=== PATIENT | female | born 1980 | race Caucasian/White ===

== ENCOUNTER 2021-11-15 06:43 | Outpatient (REF) | payer BC, SELFPAY ==
[2021-11-15 11:21] LABS: MANUAL DIFF FLAG NO
[2021-11-15 11:54] LABS: Basophils Percent Auto 0.3 % (0-2); Eosinophils Absolute Auto 0.4 X10*3/uL (0.0-0.4); Eosinophils Percent Auto 3.4 % (0-4); Hematocrit 41.4 % (37.0-47.0); Hemoglobin 13.3 g/dl (12.0-16.0); Imm Gran Abs Auto 0.03 X10*3/uL (0.00-0.03); Imm Gran Pct Auto 0.3 % (0.0-0.4); Lymphocytes Absolute Auto 3.3 X10*3/uL (1.2-4.9); Lymphocytes Percent Auto 31.8 % (20-40); Mean Corpuscular HGB Conc 32.1 g/dl (31.0-35.0); Mean Corpuscular Hemoglobin 29.1 pg (27.0-33.0); Mean Corpuscular Volume 90.6 fL (80.0-98.0); Mean Platelet Volume 10.7 fL (9.4-12.3); Monocytes Absolute Auto 0.6 X10*3/uL (0.1-1.2); Monocytes Percent Auto 5.5 % (2-11); Neutrophils Absolute Auto 6.1 x10*3/uL (2.0-8.3); Neutrophils Percent Auto 58.7 % (45-73); Platelet Count 263 X10*3/uL (160-400); Red Blood Count 4.57 X10*6/uL (4.20-5.50); Red Cell Distribution Width 13.6 % (11.0-16.0); White Blood Count 10.4 X10*3/uL (4.8-10.8)
[2021-11-15 12:00] LABS: Alanine Aminotransferase 23 U/L (0-31); Alkaline Phosphatase 60 U/L (39-117); Anion Gap 11 (12-20); Aspartate Amino Transferase 22 U/L (5-31); Bilirubin Total 0.6 mg/dL (0.0-1.0); Blood Urea Nitrogen 11 mg/dL (9-16); Calcium 9.5 mg/dL (8.4-10.2); Carbon Dioxide 26 mmol/L (22-29); Chloride 103 mmol/L (96-108); Cholesterol 200 mg/dL; Estimated Glomerular Filt Rate > 60; Glucose Fasting 87 mg/dL (60-99); HDL Cholesterol 54 mg/dL; LDL Cholesterol Calculated 130 mg/dl; Sodium 136 mmol/L (135-145); Total Protein 6.8 g/dL (6.5-8.0); Triglycerides 84 mg/dL
[2021-11-15 12:24] LABS: Thyroid Stimulating Hormone 2.15 uIU/mL (0.32-4.0); Vitamin D 25-OH Total 25.1 ng/mL (>30)
== END 2021-11-15 06:44 | disposition home or self-care (01) ==
LOC: HO.HMGCLDS 06:43
PROVIDERS: Visit Provider Internal Medicine
DX: Z00.00 Encounter for general adult medical examination without abnormal findings (principal); K21.9 Gastro-esophageal reflux disease without esophagitis; E78.00 Pure hypercholesterolemia, unspecified
CPT/HCPCS: 36415; 80053; 80061; 82306; 84443; 85025

== ENCOUNTER 2022-03-14 09:48 | Emergency (ER) | payer BC, SELFPAY ==
--- NOTE | ~2022-03-14 | US_ITS ---
EXAMINATION: US PELVIS CLINICAL INFORMATION: Left lower quadrant pain. COMPARISON: Previous CT of the abdomen and pelvis from earlier the same day. TECHNIQUE: Ultrasound of the pelvis is performed using both transabdominal and transvaginal transducers along with Doppler. Transvaginal imaging is performed due to inadequate visualization transabdominally. FINDINGS: The uterus is retroverted and measures 9.3 x 5 x 5.6 cm in dimension. No focal uterine lesion is seen. The endometrium appears focally thickened in the fundus of the uterus measuring 2.4 cm. The right ovary measures 3 x 2.4 x 2.3 cm. Adjacent to the right ovary is a 2.3 x 1.3 x 1.2 cm heterogeneous predominantly solid hyperechoic area. This demonstrates arterial and venous flow. There is surrounding small to moderate amount of fluid. Left ovary is normal-appearing and measures 4.4 x 2.3 x 1.9 cm. There is a 2.5 x 1.3 x 2.3 cm simple cyst in the right vagina probably representing a Claudia's duct cyst. US/US pelvic and transvaginal IMPRESSION: Focal thickening of the endometrium in the uterine fundus measuring up to 2.4 cm. 2.3 x 1.3 x 1.2 cm heterogeneous predominantly solid appearing right adnexal lesion and small to moderate amount of fluid in the pelvis. Considerations would include a hematoma, ruptured ovarian cyst and mass. Ectopic should be excluded. 2.5 x 1.3 x 2.3 cm simple right vaginal cyst probably representing a Claudia's duct cyst.
--- NOTE | ~2022-03-14 | CT_ITS ---
EXAMINATION: CT ABDOMEN AND PELVIS WITHOUT CONTRAST CLINICAL INFORMATION: Left lower quadrant abdominal pain for several weeks COMPARISON: None TECHNIQUE: Multidetector volumetric imaging was performed from the superior aspect of the liver through the pubic symphysis. Sagittal and coronal reformatted images were obtained on the technologist's workstation. This CT examination was performed using dose optimization techniques as appropriate, variously including the following: *Automated exposure control *Adjustment of mA and/or kV according to patient size (this includes techniques or standardized protocols for targeted exams where dose is matched to indication/reason for exam; i.e. extremities or head) *Use of iterative reconstruction technique DLP: 480 mGy-cm FINDINGS: LUNG BASES: The visualized lung bases are unremarkable. LIVER, GALLBLADDER, AND BILIARY TREE: The liver is normal in size, shape, and attenuation. No focal hepatic lesion or biliary ductal dilatation is present. The gallbladder is unremarkable with no evidence of radiopaque gallstones, gallbladder wall thickening, or obvious pericholecystic inflammatory changes. PANCREAS: Unremarkable. SPLEEN: Unremarkable. ADRENAL GLANDS: Unremarkable. KIDNEYS AND URETERS: The kidneys are normal in size, shape, and attenuation. No hydronephrosis, hydroureter, or calculi seen. No perinephric stranding. BLADDER: The bladder is markedly distended. No intrinsic calcification. GASTROINTESTINAL TRACT: No bowel obstruction or right or left lower quadrant inflammation. Appendix not clearly visualized. No evidence for diverticulitis. ABDOMINAL WALL: No significant hernia is appreciated. LYMPH NODES: Normal. VASCULAR: Unremarkable. PELVIC VISCERA: There is a small amount of fluid in the cul-de-sac which is likely physiologic. If clinically indicated, pelvic ultrasound can be done. OSSEOUS STRUCTURES: Unremarkable. CT/CT abdomen pelvis wo con IMPRESSION: Markedly distended bladder. Small amount of fluid in the cul-de-sac may be physiologic. Fleischner guidelines were followed.
--- NOTE | ~2022-03-14 | US_ITS ---
EXAMINATION: US PELVIS CLINICAL INFORMATION: Left lower quadrant pain. COMPARISON: Previous CT of the abdomen and pelvis from earlier the same day. TECHNIQUE: Ultrasound of the pelvis is performed using both transabdominal and transvaginal transducers along with Doppler. Transvaginal imaging is performed due to inadequate visualization transabdominally. FINDINGS: The uterus is retroverted and measures 9.3 x 5 x 5.6 cm in dimension. No focal uterine lesion is seen. The endometrium appears focally thickened in the fundus of the uterus measuring 2.4 cm. The right ovary measures 3 x 2.4 x 2.3 cm. Adjacent to the right ovary is a 2.3 x 1.3 x 1.2 cm heterogeneous predominantly solid hyperechoic area. This demonstrates arterial and venous flow. There is surrounding small to moderate amount of fluid. Left ovary is normal-appearing and measures 4.4 x 2.3 x 1.9 cm. There is a 2.5 x 1.3 x 2.3 cm simple cyst in the right vagina probably representing a Claudia's duct cyst. US/US pelvic ovarian doppler IMPRESSION: Focal thickening of the endometrium in the uterine fundus measuring up to 2.4 cm. 2.3 x 1.3 x 1.2 cm heterogeneous predominantly solid appearing right adnexal lesion and small to moderate amount of fluid in the pelvis. Considerations would include a hematoma, ruptured ovarian cyst and mass. Ectopic should be excluded. 2.5 x 1.3 x 2.3 cm simple right vaginal cyst probably representing a Claudia's duct cyst.
[2022-03-14 09:57] VITALS: BP 152/92; PULSE 96; RESP 16; TEMP 36.8; O2SAT 100; BMI 22.6
[2022-03-14 10:18] VITALS: BP 108/68; PULSE 78; RESP 16; TEMP 36.9; O2SAT 99
--- NOTE | 2022-03-14 10:37 | ED_ITS ---
HPI - Abdominal Pain General Chief Complaint: Abdominal Pain Stated Complaint: abd pain Lower L Time Seen by Provider: 03/14/22 10:19 Source: patient Mode of arrival: ambulatory Limitations: no limitations History of Present Illness HPI narrative: 41-year-old female with a past medical history of epidermal inclusion cyst otherwise denies any other medical or surgical history presenting to the ED with complaints of 3 weeks of left lower quadrant abdominal pain that has been intermittent up until 1 week and half ago where it became constant she reports it as a dull/burning sensation pain. She reports she has never had this pain in the past. She reports that she had a normal bowel movement this morning. She denies any fevers, chills, dizziness, headaches, neck pain/stiffness, trouble swallowing or breathing, chest pain or shortness of breath, dyspnea on exertion, orthopnea, palpitations, paresthesias, flank pain, nausea/vomiting, black or bloody stools, back pain, dysuria, hematuria, abnormal vaginal discharge, recent falls or trauma, rashes, recent travel or sick contacts or any other symptoms complaints or concerns at this time. MD elicited complaint: abdominal pain Pertinent past history: none Onset (ago): week(s) (Three weeks worse in the past 1-1/2 week) Pain Consistency: constant Location: LLQ Severity: mild Quality: dull and burning Radiation: none Migration to: no migration Exacerbating factors: movement (and palpation ) Relieving factors: nothing Associated symptoms: denies other symptoms Related Data Hx Last Menstrual Period: 3 weeks ago due in 5 days Patient : No Previous Rx's Medication Instructions Recorded fluconazole 150 mg tablet 150 mg PO Q3D fungal infection 2 03/14/22 (Diflucan) doses #2 tabs Allergies Allergy/AdvReac Type Severity Reaction Status Date / Time No Known Allergies Allergy Unverified 01/11/22 15:58 [No Known Allergies*] Review of Systems Review of Systems Constitutional : No Fever, No Chills, No Night Sweats, No Fatigue, No Malaise Cardiovascular : No Chest Pain, No SOB Respiratory : No Cough, No Sputum, No Wheezing, No Dyspnea Gastrointestinal : No Nausea, No Vomiting, No Diarrhea, + abdominal Pain, No Hematochezia, No Melena Genitourinary : No irregular bleeding, No Dysuria, No Urinary Frequency, No Hematuria,No Urinary Incontinence, No Urgency, No Flank Pain Musculoskeletal : No joint pain, No Myalgias, No Joint Swelling Skin : No Skin Lesions, No rash Neuro : No Weakness, No Numbness, No Paresthesias, No Loss of Consciousness, No Dizziness, No Headache Heme/Lymph: No Lymphadenopathy Endocrine : No Temperature Intolerance Yes all other systems are reviewed and are negative [facility] Past Medical History Attestation statement: The following information was validated with the patient. Source: old records reviewed and nursing notes reviewed Surgical History History of removal of cyst History of wisdom tooth extraction Hx Last Menstrual Period: 3 weeks ago due in 5 days Family History Family History Mother Endometriosis Diverticulitis Social History Social History Advance Directives: No Advance Directives Information Provided: No Patient : No Physical Exam ED Vital Signs: Vital Signs - 24 hr 03/14/22 09:57 03/14/22 10:18 Temperature 98.3 F 98.4 F Pulse Rate 96 78 Respiratory Rate 16 16 Blood Pressure 152/92 H 108/68 Pulse Oximetry 100 99 Oxygen Delivery Method Room Air Room Air BMI result Body Mass Index 22.6 Vital signs have been reviewed and all within normal limits Appearance: Alert. Oriented X3. No acute distress. Head: Normal external exam. Normocephalic. Eyes: PERRLA. EOMI. Conjunctiva and sclera normal. Eyelids normal. ENT: Pharynx normal. Uvula midline. Moist mucous membranes. No trismus noted. No drooling noted. No muffled voice noted. Neck: Normal inspection. Neck supple. FROM. No adenopathy. No meningeal signs. CVS: Normal heart rate and rhythm. Heart sound normal. No murmurs noted. Pulses normal throughout. Respiratory: No respiratory distress. Painless inspiration. Breath sounds normal. No wheezes/rales/rhonchi noted. Chest nontender. No accessory muscle usage noted or decreased air movement noted. Abdomen: Soft and mild tenderness palpation to left lower quadrant. Nondistended. No guarding. No rigidity. Bowel sounds normal in all 4 quadrants. No distention noted. No organomegaly noted. No visible injury noted. No rebound tenderness. Negative Rovsing sign. Negative obturator's sign. Negative psoas sign. Negative Cruz sign. Back: No CVA tenderness. Full range of motion noted. Skin: Skin warm and dry. Normal skin color. Normal skin turgor. No rashes/lesions/lacerations noted. Extremities: Extremities exhibit normal range of motion. Extremities nontender. Neuro: Oriented X 3. No motor deficit. No sensory deficit. Reflexes normal. Normal steady gait. CN's II-XII intact bilaterally? Course Course Course Narrative: 10:20am - 41-year-old female with a past medical history of epidermal inclusion cyst otherwise denies any other medical or surgical history presenting to the ED with complaints of 3 weeks of left lower quadrant abdominal pain that has been intermittent up until 1 week and half ago where it became constant she reports it as a dull/burning sensation pain. Plan: Will obtain labs, UA, CT scan abdomen pelvis with IV contrast re-evalua te. Reevaluation(s) Reevaluation #1: - labs return and all labs within normal limits. Serum quant negative for . - CT scan abdomen pelvis revealed markedly distended bladder and small amount of fluid in the [place] may be physioogic. Otherwise no other acute processes noted. - will obtain an ovarian/Doppler ultrasound to evaluate for any other acute processes and re-evaluate. Time: 12:38 Reevaluation #2: IMPRESSION: Focal thickening of the endometrium in the uterine fundus measuring up to 2.4 cm. ? 2.3 x 1.3 x 1.2 cm heterogeneous predominantly solid appearing right adnexal lesion and small to moderate amount of fluid in the pelvis. Considerations would include a hematoma, ruptured ovarian cyst and mass. Ectopic should be excluded. ? 2.5 x 1.3 x 2.3 cm simple right vaginal cyst probably representing a Claudia's duct cyst. - Ultrasound revealed the above. Therefore I discussed this with Dr. Martinez and patient does not have any right lower quadrant abdominal pain. I performed a speculum exam and her cervical os is completely close although she does have cottage cheese like nonodorous white-colored discharge therefore will treat for Nichelle vaginitis. Otherwise she will be referred to OBGYN as an outpatient for further evaluation treatment. Instructions return if any new or worsening symptoms. Patient understands agrees with this plan. Time: 15:48 [facility] - Abdominal Pain Medical Records Attestation: I reviewed the patient's medical records. Lab Data Attestation: I reviewed the patient's lab results. Result diagrams: 03/14/22 10:34 03/14/22 10:34 Labs: Lab Results 03/14/22 03/14/22 03/14/22 Range/Units 10:34 10:34 10:34 WBC 9.8 (4.8-10.8) X10*3/uL RBC 4.67 (4.20-5.50) X10*6/uL Hgb 13.8 (12.0-16.0) g/dl Hct 41.5 (37.0-47.0) % MCV 88.9 (80.0-98.0) fL MCH 29.6 (27.0-33.0) pg MCHC 33.3 (31.0-35.0) g/dl RDW 13.4 (11.0-16.0) % Plt Count 229 (160-400) X10*3/uL MPV 10.1 (9.4-12.3) fL Immature Gran % (Auto) 0.3 (0.0-0.4) % Neut % (Auto) 65.8 (45-73) % Lymph % (Auto) 27.2 (20-40) % [place] % (Auto) 5.5 (2-11) % Eos % (Auto) 0.9 (0-4) % Baso % (Auto) 0.3 (0-2) % Lymph # (Auto) 2.7 (1.2-4.9) X10*3/uL [place] # (Auto) 0.5 (0.1-1.2) X10*3/uL Eos # (Auto) 0.1 (0.0-0.4) X10*3/uL Baso # (Auto) 0.0 (0.0-0.2) X10*3/uL Abs Immat Gran (auto) 0.03 (0.00-0.03) X10*3/uL Absolute Neuts (auto) 6.4 (2.0-8.3) x10*3/uL Absolute Nucleated RBC 0.000 (0.0-0.012) X10*3/uL Nucleated RBC % (auto) 0.0 (0.0-0.2) /100WBC PT 11.9 (10.0-13.1) SEC INR 1.0 (0.9-1.1) Sodium 139 (135-145) mmol/L Potassium 4.1 (3.3-5.1) mmol/L Chloride 105 (96-108) mmol/L Carbon Dioxide 25 (22-29) mmol/L Anion Gap 13 (12-20) BUN 11 (9-16) mg/dL Creatinine 0.71 (0.5-1.4) mg/dL Estim Creat Clear Calc 99.5 Estimated GFR > 60 Random Glucose 86 (60-115) mg/dL Calcium 9.0 (8.4-10.2) mg/dL Magnesium 2.1 (1.6-2.6) mg/dL Total Bilirubin 0.8 (0.0-1.0) mg/dL AST 20 (5-31) U/L ALT 21 (0-31) U/L Alkaline Phosphatase 57 (39-117) U/L Total Protein 7.0 (6.5-8.0) g/dL Albumin 4.1 (3.5-5.0) g/dL Lipase 7 L (8-78) U/L Beta HCG, Quant < 2 mIU/mL Urine Color Urine Appearance Urine pH (5.0-8.0) Ur Specific [place] (1.005-1.025) Urine Protein (Neg-Trace) mg/dL Urine Glucose (UA) (Negative) mg/dL Urine Ketones (Negative) mg/dL Urine Blood (Negative) Urine Nitrite (Negative) Ur Leukocyte Esterase (Negative) 03/14/22 Range/Units 14:06 WBC (4.8-10.8) X10*3/uL RBC (4.20-5.50) X10*6/uL Hgb (12.0-16.0) g/dl Hct (37.0-47.0) % MCV (80.0-98.0) fL MCH (27.0-33.0) pg MCHC (31.0-35.0) g/dl RDW (11.0-16.0) % Plt Count (160-400) X10*3/uL MPV (9.4-12.3) fL Immature Gran % (Auto) (0.0-0.4) % Neut % (Auto) (45-73) % Lymph % (Auto) (20-40) % [place] % (Auto) (2-11) % Eos % (Auto) (0-4) % Baso % (Auto) (0-2) % Lymph # (Auto) (1.2-4.9) X10*3/uL [place] # (Auto) (0.1-1.2) X10*3/uL Eos # (Auto) (0.0-0.4) X10*3/uL Baso # (Auto) (0.0-0.2) X10*3/uL Abs Immat Gran (auto) (0.00-0.03) X10*3/uL Absolute Neuts (auto) (2.0-8.3) x10*3/uL Absolute Nucleated RBC (0.0-0.012) X10*3/uL Nucleated RBC % (auto) (0.0-0.2) /100WBC PT (10.0-13.1) SEC INR (0.9-1.1) Sodium (135-145) mmol/L Potassium (3.3-5.1) mmol/L Chloride (96-108) mmol/L Carbon Dioxide (22-29) mmol/L Anion Gap (12-20) BUN (9-16) mg/dL Creatinine (0.5-1.4) mg/dL Estim Creat Clear Calc Estimated GFR Random Glucose (60-115) mg/dL Calcium (8.4-10.2) mg/dL Magnesium (1.6-2.6) mg/dL Total Bilirubin (0.0-1.0) mg/dL AST (5-31) U/L ALT (0-31) U/L Alkaline Phosphatase (39-117) U/L Total Protein (6.5-8.0) g/dL Albumin (3.5-5.0) g/dL Lipase (8-78) U/L Beta HCG, Quant mIU/mL Urine Color Yellow Urine Appearance Clear Urine pH 7.0 (5.0-8.0) Ur Specific [place] <= 1.005 (1.005-1.025) Urine Protein Negative (Neg-Trace) mg/dL Urine Glucose (UA) Negative (Negative) mg/dL Urine Ketones Negative (Negative) mg/dL Urine Blood Negative (Negative) Urine Nitrite Negative (Negative) Ur Leukocyte Esterase Negative (Negative) Imaging Data CT scan abdomen pelvis without IV contrast: Attestation: I personally reviewed and interpreted this imaging study as follows: Radiologist's impression: FINDINGS: LUNG BASES: The visualized lung bases are unremarkable.? LIVER, GALLBLADDER, AND BILIARY TREE: The liver is normal in size, shape, and attenuation. No focal hepatic lesion or biliary ductal dilatation is present. The gallbladder is unremarkable with no evidence of radiopaque gallstones, gallbladder wall thickening, or obvious pericholecystic inflammatory changes.? PANCREAS: Unremarkable.? SPLEEN: Unremarkable.? ADRENAL GLANDS: Unremarkable.? KIDNEYS AND URETERS: The kidneys are normal in size, shape, and attenuation. No hydronephrosis, hydroureter, or calculi seen. No perinephric stranding. ? BLADDER: The bladder is markedly distended. No intrinsic calcification. ? GASTROINTESTINAL TRACT: No bowel obstruction or right or left lower quadrant inflammation. Appendix not clearly visualized. No evidence for diverticulitis.? ABDOMINAL WALL: No significant hernia is appreciated.? LYMPH NODES: Normal. VASCULAR: Unremarkable. PELVIC VISCERA: There is a small amount of fluid in the cul-de-sac which is likely physiologic. If clinically indicated, pelvic ultrasound can be done.? OSSEOUS STRUCTURES: Unremarkable.? CT/CT abdomen pelvis wo con IMPRESSION: Markedly distended bladder. Small amount of fluid in the cul-de-sac may be physiologic.? ? Fleischner guidelines were followed. Ovarian/pelvic/transvaginal ultrasound/Doppler ultrasound: Attestation: I personally reviewed and interpreted this imaging study as follows: Radiologist's impression: FINDINGS: The uterus is retroverted and measures 9.3 x 5 x 5.6 cm in dimension. No focal uterine lesion is seen. The endometrium appears focally thickened in the fundus of the uterus measuring 2.4 cm. The right ovary measures 3 x 2.4 x 2.3 cm. Adjacent to the right ovary is a 2.3 x 1.3 x 1.2 cm heterogeneous predominantly solid hyperechoic area. This demonstrates arterial and venous flow. There is surrounding small to moderate amount of fluid. Left ovary is normal-appearing and measures 4.4 x 2.3 x 1.9 cm. There is a 2.5 x 1.3 x 2.3 cm simple cyst in the right vagina probably representing a Claudia's duct cyst. US/US pelvic and transvaginal IMPRESSION: Focal thickening of the endometrium in the uterine fundus measuring up to 2.4 cm. ? 2.3 x 1.3 x 1.2 cm heterogeneous predominantly solid appearing right adnexal lesion and small to moderate amount of fluid in the pelvis. Considerations would include a hematoma, ruptured ovarian cyst and mass. Ectopic should be excluded. ? 2.5 x 1.3 x 2.3 cm simple right vaginal cyst probably representing a Claudia's duct cyst. Discharge Plan Discharge Clinical Impression: Abnormal pelvic ultrasound, Endometrial thickening on ultrasound, Cyst of vagina, Nichelle vaginitis Patient Disposition: Home, Self-Care Instructions: Yeast Infection (ED) Additional Instructions: You have pending lab results if any are positive you will be contacted within 1 week. You can also see results on the patient portal using your email a few signed up with registration. Please follow-up with OBGYN within the next 1-2 weeks for your abnormal pelvic ultrasound. Along with following up with her primary care provider. Return if any new or worsening symptoms. Prescriptions: New fluconazole [Diflucan] 150 mg tablet 150 mg PO Q3D 0 Days Qty: 2 0RF Rx Instructions: may repeat second dose 72 hrs after first dose if symptoms persist Referrals: Danish Jacob DO [Primary Care Provider] - 2 days Andrei Martinez MD [Physician] - 1 week (Call to make a follow up appointment within 1-2 weeks ) Print Language: Taiwanese
[2022-03-14 10:38] LABS: MANUAL DIFF FLAG NO
[2022-03-14 10:40] LABS: Basophils Percent Auto 0.3 % (0-2); Eosinophils Absolute Auto 0.1 X10*3/uL (0.0-0.4); Eosinophils Percent Auto 0.9 % (0-4); Hematocrit 41.5 % (37.0-47.0); Hemoglobin 13.8 g/dl (12.0-16.0); Imm Gran Abs Auto 0.03 X10*3/uL (0.00-0.03); Imm Gran Pct Auto 0.3 % (0.0-0.4); Lymphocytes Absolute Auto 2.7 X10*3/uL (1.2-4.9); Lymphocytes Percent Auto 27.2 % (20-40); Mean Corpuscular HGB Conc 33.3 g/dl (31.0-35.0); Mean Corpuscular Hemoglobin 29.6 pg (27.0-33.0); Mean Corpuscular Volume 88.9 fL (80.0-98.0); Mean Platelet Volume 10.1 fL (9.4-12.3); Monocytes Absolute Auto 0.5 X10*3/uL (0.1-1.2); Monocytes Percent Auto 5.5 % (2-11); Neutrophils Absolute Auto 6.4 x10*3/uL (2.0-8.3); Neutrophils Percent Auto 65.8 % (45-73); Platelet Count 229 X10*3/uL (160-400); Red Blood Count 4.67 X10*6/uL (4.20-5.50); Red Cell Distribution Width 13.4 % (11.0-16.0); White Blood Count 9.8 X10*3/uL (4.8-10.8)
[2022-03-14 10:48] LABS: Prothrombin Time 11.9 SEC (10.0-13.1)
[2022-03-14 11:03] LABS: Alanine Aminotransferase 21 U/L (0-31); Albumin Level 4.1 g/dL (3.5-5.0); Alkaline Phosphatase 57 U/L (39-117); Anion Gap 13 (12-20); Aspartate Amino Transferase 20 U/L (5-31); Bilirubin Total 0.8 mg/dL (0.0-1.0); Blood Urea Nitrogen 11 mg/dL (9-16); Carbon Dioxide 25 mmol/L (22-29); Chloride 105 mmol/L (96-108); Creatinine Clr Calc Pharmacy 99.5; Estimated Glomerular Filt Rate > 60; Glucose Random 86 mg/dL (60-115); Lipase 7 U/L (8-78); Magnesium 2.1 mg/dL (1.6-2.6); Potassium 4.1 mmol/L (3.3-5.1); Sodium 139 mmol/L (135-145)
[2022-03-14 11:09] LABS: HCG Quantitative < 2 mIU/mL
[2022-03-14 14:29] LABS: Appearance Urine Clear; Color Urine Yellow; Glucose Urine UA Negative (Negative); Leukocyte Esterase Urine Negative (Negative); Nitrite Urine Negative (Negative); Specific Gravity - Urine <= 1.005 (1.005-1.025); Urine Blood Negative (Negative); Urine Ketones Negative (Negative); Urine Protein Negative (Neg-Trace)
--- NOTE | 2022-03-14 15:35 | PM.GYNCN ---
[employer] - CN: HPI Data of Consult Consult date: 03/14/22 Primary Care Provider: Danish Jacob DO Consult Narrative Narrative: I was consulted on Maritza Sage who is a 41 year old female who presented emergency room complaining of 3 weeks of intermittent left lower quadrant abdominal pain that turned constant over the last 10 days. The patient reports a dull/burning sensation pain, no associated fevers, chills, nausea/vomiting, abnormal vaginal discharge, urinary symptoms or any other symptoms complaints The following workup was done emergency room: CBC, chemistry, UA, hCG all negative CT scan of abdomen pelvis with negative, pelvic viscera was negative except for small amount of fluid in the pelvis possible physiologic Pelvic ultrasound impression showed the following: Focal thickening of the endometrium in the uterine fundus measuring up to 2.4 cm. ?2.3 x 1.3 x 1.2 cm heterogeneous predominantly solid appearing right adnexal lesion and small to moderate amount of fluid in the pelvis. Considerations would include a hematoma, ruptured ovarian cyst and mass. Ectopic should be excluded. ?2.5 x 1.3 x 2.3 cm simple right vaginal cyst probably representing a Claudia's duct cyst. cc:: CC: [employer] - Review of Systems Review of Systems ROS Unobtainable: All systems reviewed & are unremarkable except as noted in HPI and below Cardiovascular: Denies Palpatations, Loss of consciousness or Chest pain Respiratory: Denies Cough, Wheezing or Shortness of breath Musculoskeletal: Denies Low back pain Gastrointestinal: Denies Heartburn, Constipation, Diarrhea, Nausea or Vomiting Genitourinary: Denies Pain with urination, Burning with urination or Urinary frequency Neurological: Denies Migranes Psychological: Denies Depression [facility] Family History Family History Mother Endometriosis Diverticulitis Surgical History Surgical History History of removal of cyst History of wisdom tooth extraction Social History Social History Advance Directives: No Advance Directives Information Provided: No Patient : No Meds Allergies Allergy/AdvReac Type Severity Reaction Status Date / Time No Known Allergies Allergy Unverified 01/11/22 15:58 [No Known Allergies*] [employer] Physical Exam Vitals Vital signs: Temp Pulse Resp BP Pulse Ox O2 Del Method 98.4 F 78 16 108/68 99 03/14/22 10:18 03/14/22 10:18 03/14/22 10:18 03/14/22 10:18 03/14/22 10:18 03/14/22 10:18 BMI result Body Mass Index 22.6 Constitutional General Appearance: Healthy appearing, Well-nourished and Well-developed Psychiatric Mood and Affect: active and alert, normal mood and normal affect Skin Appearance: No rashes and No lesions Lungs Respiratory Effort: No intercostal retractions Auscultation: Clear to auscultation Cardiovascular Auscultation: RRR Additional Comments: Exam reported by CADY Berry in the emergency room as the following: Abd: Soft and mild tenderness palpation to left lower quadrant, otherwise unremarkable Pelvic exam: Normal exam except for cottage cheese like discharge [employer]ER - Results Labs CBC & Chem 7: 03/14/22 10:34 03/14/22 10:34 Labs: Short CBC 03/14/22 Range/Units 10:34 WBC 9.8 (4.8-10.8) X10*3/uL Hgb 13.8 (12.0-16.0) g/dl Hct 41.5 (37.0-47.0) % Plt Count 229 (160-400) X10*3/uL BMP 03/14/22 10:34 Sodium 139 Potassium 4.1 Chloride 105 Carbon Dioxide 25 BUN 11 Creatinine 0.71 Calcium 9.0 Liver Function 03/14/22 Range/Units 10:34 Total Bilirubin 0.8 (0.0-1.0) mg/dL AST 20 (5-31) U/L ALT 21 (0-31) U/L Alkaline Phosphatase 57 (39-117) U/L Albumin 4.1 (3.5-5.0) g/dL Urine 03/14/22 Range/Units 14:06 Urine Color Yellow Urine Appearance Clear Urine pH 7.0 (5.0-8.0) Ur Specific [place] <= 1.005 (1.005-1.025) Urine Protein Negative (Neg-Trace) mg/dL Urine Glucose (UA) Negative (Negative) mg/dL Imaging CT scan - pelvis: Radiologist's impression: ITS Impressions Abdomen/Pelvis CT 03/14/22 11:35 IMPRESSION: Markedly distended bladder. Small amount of fluid in the cul-de-sac may be physiologic. Fleischner guidelines were followed. Doppler Study Ultrasound 03/14/22 13:52 IMPRESSION: Focal thickening of the endometrium in the uterine fundus measuring up to 2.4 cm. 2.3 x 1.3 x 1.2 cm heterogeneous predominantly solid appearing right adnexal lesion and small to moderate amount of fluid in the pelvis. Considerations would include a hematoma, ruptured ovarian cyst and mass. Ectopic should be excluded. 2.5 x 1.3 x 2.3 cm simple right vaginal cyst probably representing a Claudia's duct cyst. Pelvic/Transvag US 03/14/22 13:52 IMPRESSION: Focal thickening of the endometrium in the uterine fundus measuring up to 2.4 cm. 2.3 x 1.3 x 1.2 cm heterogeneous predominantly solid appearing right adnexal lesion and small to moderate amount of fluid in the pelvis. Considerations would include a hematoma, ruptured ovarian cyst and mass. Ectopic should be excluded. 2.5 x 1.3 x 2.3 cm simple right vaginal cyst probably representing a Claudia's duct cyst. Assessment and Plan (1) Complex cyst of right ovary: Status: Acute Plan Since the patient is presenting with left lower quadrant pain and abdominal/pelvic exam are benign, pelvic ultrasound findings is on the right side, CT scan pelvic viscera was unremarkable, hCG is negative, CBC, chemistry UA all negative, recommended the following to CADY Berry close follow-up as an outpatient regarding the complex ovarian cyst . Instructions to be given to the patient to come back to emergency room in case of worsening of her pelvic pain, nausea and vomiting, temperature above 100.4, heavy vaginal bleeding. I spent a total of 20 minutes reviewing the chart, documenting in the medical record and communicating with the ER provider
[2022-03-15 05:44] LABS: CT PCR NOT DETECTED (Not Detect.); NG PCR NOT DETECTED (Not Detect.)
[2022-03-15 13:08] LABS: BV Int Neg Control Negative (Negative); BV Int Pos Control Positive (Positive)
== END 2022-03-14 16:06 | disposition home or self-care (01) ==
PROVIDERS: Physician Assistant Medical; Emergency Provider Emergency Medicine; PCP Internal Medicine
DX: N83.291 Other ovarian cyst, right side (principal); B37.3 Candidiasis of vulva and vagina; R10.32 Left lower quadrant pain; R10.2 Pelvic and perineal pain; Z79.899 Other long term (current) drug therapy
CPT/HCPCS: 36415; 74176; 76830; 76856; 80053; 81003; 83690; 83735; 84702; 85025; 85610; 87480; 87491; 87510; 87591; 87660; 93975; 99284

== ENCOUNTER 2022-03-20 13:41 | Outpatient (REF) | payer BC, SELFPAY | END 2022-03-20 13:42 | disposition home or self-care (01) | LOC: HO.LAB 13:41 | PROVIDERS: PCP Internal Medicine; Referring Provider Internal Medicine; Visit Provider Surgery | DX: L72.0 Epidermal cyst (principal) | CPT/HCPCS: 11401; 11422; 88304 ==

== ENCOUNTER 2022-11-14 06:12 | Outpatient (REF) | payer BC, SELFPAY ==
[2022-11-14 11:07] LABS: MANUAL DIFF FLAG NO
[2022-11-14 11:40] LABS: Basophils Percent Auto 0.6 % (0-2); Eosinophils Absolute Auto 0.2 X10*3/uL (0.0-0.4); Eosinophils Percent Auto 2.8 % (0-4); Hematocrit 41.7 % (37.0-47.0); Hemoglobin 13.5 g/dl (12.0-16.0); Imm Gran Abs Auto 0.02 X10*3/uL (0.00-0.03); Imm Gran Pct Auto 0.3 % (0.0-0.4); Lymphocytes Percent Auto 43.2 % (20-40); Mean Corpuscular HGB Conc 32.4 g/dl (31.0-35.0); Mean Corpuscular Hemoglobin 29.4 pg (27.0-33.0); Mean Corpuscular Volume 90.8 fL (80.0-98.0); Mean Platelet Volume 10.9 fL (9.4-12.3); Monocytes Absolute Auto 0.4 X10*3/uL (0.1-1.2); Monocytes Percent Auto 5.8 % (2-11); Neutrophils Absolute Auto 3.3 x10*3/uL (2.0-8.3); Neutrophils Percent Auto 47.3 % (45-73); Platelet Count 267 X10*3/uL (160-400); Red Blood Count 4.59 X10*6/uL (4.20-5.50); Red Cell Distribution Width 13.4 % (11.0-16.0)
[2022-11-14 11:54] LABS: Alanine Aminotransferase 34 U/L (0-31); Albumin Level 3.9 g/dL (3.5-5.0); Alkaline Phosphatase 74 U/L (39-117); Anion Gap 8 (12-20); Aspartate Amino Transferase 28 U/L (5-31); Bilirubin Total 0.8 mg/dL (0.0-1.0); Blood Urea Nitrogen 13 mg/dL (9-16); Carbon Dioxide 29 mmol/L (22-29); Chloride 106 mmol/L (96-108); Cholesterol 189 mg/dL; Estimated Glomerular Filt Rate > 60; Glucose Fasting 88 mg/dL (60-99); HDL Cholesterol 46 mg/dL; LDL Cholesterol Calculated 129 mg/dl; Potassium 3.9 mmol/L (3.3-5.1); Sodium 139 mmol/L (135-145); Total Protein 6.6 g/dL (6.5-8.0); Triglycerides 73 mg/dL
[2022-11-14 12:12] LABS: Thyroid Stimulating Hormone 1.33 uIU/mL (0.32-4.0); Vitamin D 25-OH Total 24.4 ng/mL (>30)
== END 2022-11-14 06:13 | disposition home or self-care (01) ==
LOC: HO.HMGCLDS 06:12
PROVIDERS: PCP Internal Medicine; Visit Provider Internal Medicine
DX: Z00.00 Encounter for general adult medical examination without abnormal findings (principal); E55.9 Vitamin D deficiency, unspecified; Z91.09 Other allergy status, other than to drugs and biological substances
CPT/HCPCS: 36415; 80053; 80061; 82306; 84443; 85025

== ENCOUNTER 2024-05-29 23:07 | Emergency (ER) | payer BC, SELFPAY ==
[2024-05-29 23:42] VITALS: BP 123/85; PULSE 109; RESP 20; TEMP 37; O2SAT 96; BMI 22.1
--- NOTE | 2024-05-30 02:21 | PC.NURSE ---
pt from lobby, assume care of pt at this time
[2024-05-30 02:26] VITALS: BP 127/87; PULSE 97; RESP 16; TEMP 37.1; O2SAT 100
--- NOTE | 2024-05-30 02:46 | MHC.EDTECH ---
This pct just assumed care of Patient ,vitals taken ,patient was change into hospital attire ,and hooked up to senior budget analyst ,blood drawn and sent to lab .
[2024-05-30 02:49] LABS: MANUAL DIFF FLAG NO
[2024-05-30 02:53] LABS: Basophils Percent Auto 0.3 % (0-2); Eosinophils Absolute Auto 0.1 X10*3/uL (0.0-0.4); Eosinophils Percent Auto 0.9 % (0-4); Hematocrit 39.3 % (37.0-47.0); Hemoglobin 14.1 g/dl (12.0-16.0); Imm Gran Abs Auto 0.02 X10*3/uL (0.00-0.03); Imm Gran Pct Auto 0.3 % (0.0-0.4); Lymphocytes Absolute Auto 2.4 X10*3/uL (1.2-4.9); Lymphocytes Percent Auto 29.8 % (20-40); Mean Corpuscular HGB Conc 35.9 g/dl (31.0-35.0); Mean Corpuscular Hemoglobin 30.7 pg (27.0-33.0); Mean Corpuscular Volume 85.4 fL (80.0-98.0); Mean Platelet Volume 9.8 fL (9.4-12.3); Monocytes Absolute Auto 0.9 X10*3/uL (0.1-1.2); Monocytes Percent Auto 11.2 % (2-11); Neutrophils Absolute Auto 4.6 x10*3/uL (2.0-8.3); Neutrophils Percent Auto 57.5 % (45-73); Platelet Count 243 X10*3/uL (160-400); Red Cell Distribution Width 13.1 % (11.0-16.0)
[2024-05-30 03:25] LABS: Alanine Aminotransferase 11 U/L (0-31); Albumin Level 3.8 g/dL (3.5-5.0); Anion Gap 16 (12-20); Aspartate Amino Transferase 27 U/L (5-31); Bilirubin Total 0.8 mg/dL (0.0-1.0); Blood Urea Nitrogen 5 mg/dL (9-16); Calcium 9.1 mg/dL (8.4-10.2); Carbon Dioxide 19 mmol/L (22-29); Chloride 106 mmol/L (96-108); Estimated Glomerular Filt Rate > 60; Glucose Random 92 mg/dL (60-115); Potassium 3.8 mmol/L (3.3-5.1); Sodium 137 mmol/L (135-145); Total Protein 7.5 g/dL (6.5-8.0)
[2024-05-30 03:32] LABS: Alkaline Phosphatase 53 U/L (39-117)
[2024-05-30 03:52] VITALS: BP 121/80; PULSE 86; RESP 16; TEMP 37.3; O2SAT 97
--- NOTE | 2024-05-30 03:56 | ED_ITS ---
HPI - Allergic Reaction General Chief complaint: Allergic Reaction Stated complaint: allergic reaction Time Seen by Provider: 05/30/24 02:31 Source: patient Mode of arrival: ambulatory Limitations: no limitations History of Present Illness ED Provider: Dr. Merino HPI narrative: 43 yo female with no medical problems. She has had a URI and laryngitis for 1 week. She was started on augmentin for sinusitis and developed hives. She took benadryl and improve and then was switched to levaquin and developed another allergic reaction. She comes in for occaisional shaking after taking benadryl Related Data Previous Rx's ?Medication ?Instructions ?Recorded fluticasone furoate 27.5 2 spray intranasal DAILY #9.1 mL 05/30/24 mcg/actuation nasal spray,suspension (Flonase Sensimist) kilimktjmjbug-IC-ukbczowyvxn 5 10 ml PO Q4H PRN cough #237 mL 05/30/24 mg-10 mg-100 mg/5 mL oral liquid Allergies Allergy/AdvReac Type Severity Reaction Status Date / Time No Known Allergies Allergy Verified 05/29/24 23:49 [No Known Allergies*] Review of Systems 2 Review of Systems: Yes all other systems are reviewed and are negative Neurologic: Denies Sensory deficit (Neuro) PMFSH Past Medical History Surgical History History of removal of cyst (~2021) History of removal of cyst History of wisdom tooth extraction Family History Family History Mother Endometriosis Diverticulitis Social History Social History Smoked in Last 30 Days: No Use of substances other than those prescribed or required for medical reasons: No Advance Directives: No Advance Directives Information Provided: No Do you have a plan to hurt others: No Plan Patient : No Physical Exam ED Vital Signs: Vital Signs - 24 hr 05/29/24 23:42 05/30/24 02:26 05/30/24 03:52 Temperature 98.6 F 98.8 F 99.2 F Pulse Rate 109 H 97 86 Respiratory Rate 20 16 16 Blood Pressure 123/85 127/87 121/80 Pulse Oximetry 96 100 97 Oxygen Delivery Method Room Air Room Air Room Air BMI result Body Mass Index 22.1 Const Other: patient with laryngitis in no acute distress. General: healthy appearing Nutritional Appearance: average body habitus Orientation/consciousness: oriented to person and patient oriented x3 Limitations: no limitations HENMT Head: Yes normal to inspection Ears: external ears normal General nose exam: Normal external nose present Mouth: Normal oral and palatal mucosa present and oropharynx normal Throat: Yes posterior oropharynx normal Eyes General: appearance normal, both eyes and all related structures Neck Neck: Yes normal visual inspection Chest Chest palpation & inspection: normal inspection of the chest Resp Auscultation: clear to auscultation bilaterally Cardio Jugular venous distension: no JVD Rate: regular rate Rhythm: regular rhythm Heart sounds: S1 normal heart sound present and S2 normal heart sound present GI Inspection: Yes normal to inspection Palpation (GI): Soft to palpation, nontender and No hepatosplenomegaly present Auscultation: normal bowel sounds General: Yes no CVA tenderness Back/Spine/Pelvis Back: no CVA tenderness Skin General skin exam: no rashes or lesions noted Neuro General: oriented to person and patient oriented x3 Cranial nerves: Yes CN's II-XII intact bilaterally Motor exam (neuro): 5/5 motor strength present throughout Sensory Exam: No Sensory deficit (Neuro) Extrem General: Yes normal to inspection Psych Appearance: grossly normal Course Reevaluation(s) Reevaluation #1: patient observed, no more hives will dc home on flonase and robitussin and salt water gargles Time: 04:01 Medical Decision Making Differential Diagnosis Differential Diagnoses: The differential diagnosis associated with the presentation includes (allergic reaction, viral URI, viral sinusitis) Admission/Observation Consideration of admission/observation: Escalation of care including admission/observation considered (upon arrival patient considered for admission) Lab Data 05/30/24 02:41 05/30/24 02:41 Labs: Lab Results 05/30/24 Range/Units 02:41 WBC 8.0 (4.8-10.8) X10*3/uL RBC 4.60 (4.20-5.50) X10*6/uL Hgb 14.1 (12.0-16.0) g/dl Hct 39.3 (37.0-47.0) % MCV 85.4 (80.0-98.0) fL MCH 30.7 (27.0-33.0) pg MCHC 35.9 H (31.0-35.0) g/dl RDW 13.1 (11.0-16.0) % Plt Count 243 (160-400) X10*3/uL MPV 9.8 (9.4-12.3) fL Immature Gran % (Auto) 0.3 (0.0-0.4) % Neut % (Auto) 57.5 (45-73) % Lymph % (Auto) 29.8 (20-40) % [place]in[place] % (Auto) 11.2 H (2-11) % Eos % (Auto) 0.9 (0-4) % Baso % (Auto) 0.3 (0-2) % Lymph # (Auto) 2.4 (1.2-4.9) X10*3/uL [place] # (Auto) 0.9 (0.1-1.2) X10*3/uL Eos # (Auto) 0.1 (0.0-0.4) X10*3/uL Baso # (Auto) 0.0 (0.0-0.2) X10*3/uL Abs Immat Gran (auto) 0.02 (0.00-0.03) X10*3/uL Absolute Neuts (auto) 4.6 (2.0-8.3) x10*3/uL Absolute Nucleated RBC 0.000 (0.0-0.012) X10*3/uL Nucleated RBC % (auto) 0.0 (0.0-0.2) /100WBC Sodium 137 (135-145) mmol/L Potassium 3.8 (3.3-5.1) mmol/L Chloride 106 (96-108) mmol/L Carbon Dioxide 19 L (22-29) mmol/L Anion Gap 16 (12-20) BUN 5 L (9-16) mg/dL Creatinine 0.66 (0.5-1.4) mg/dL Estim Creat Clear Calc 105.0 Estimated GFR > 60 Random Glucose 92 (60-115) mg/dL Calcium 9.1 (8.4-10.2) mg/dL Total Bilirubin 0.8 (0.0-1.0) mg/dL AST 27 (5-31) U/L ALT 11 (0-31) U/L Alkaline Phosphatase 53 (39-117) U/L Total Protein 7.5 (6.5-8.0) g/dL Albumin 3.8 (3.5-5.0) g/dL Independent Historian Clinical information obtained from an independent historian. History obtained from or confirmed by: Other (family) Prescription Management I considered prescription management with: Antibiotic (patient with viral illness will not start abx) Discharge Plan Discharge Clinical Impression: Allergic reaction, Upper respiratory infection, viral Patient Disposition: Home, Self-Care Instructions: Upper Respiratory Infection (DC), General Allergic Reaction (ED) Prescriptions: New Flonase Sensimist 27.5 mcg/actuation spray,suspension 2 spray intranasal DAILY Qty: 9.1 0RF Rx Instructions: into each nostril kdjqsbuziplrp-TS-fmgsfasgegc 5-10-100 mg/5 mL liquid 10 ml PO Q4H PRN (Reason: cough) Qty: 237 0RF Referrals: Danish Jacob DO [Primary Care Provider] - 5 days Print Language: [place]
[2024-05-30 04:24] VITALS: BP 121/80; PULSE 86; RESP 16; TEMP 37.3; O2SAT 97
== END 2024-05-30 04:24 | disposition home or self-care (01) ==
PROVIDERS: Emergency Provider Emergency Medicine; PCP Internal Medicine
DX: L50.0 Allergic urticaria (principal); B34.9 Viral infection, unspecified; Z79.899 Other long term (current) drug therapy
CPT/HCPCS: 36415; 80053; 85025; 99283; 99284

== ENCOUNTER 2024-09-05 13:09 | Outpatient (AMB) | payer BC, SELFPAY ==
--- NOTE | 2024-09-05 13:10 | A.OFFPC_ITS ---
Intake Visit Reasons: ? strep throat Shoemaker Apprentice Required: No Nutrition And Dietetics Instructor: Not Required per policy Accompanied by: Self / Same As Patient Allergies Penicillins Allergy (Intermediate, Verified 09/05/24 14:01) Hives Medication List - Last Reconciled 09/05/24 by Ifrah Rios PA-C azithromycin For 250 mg dose pack: take 500 mg today (day 1), then 250 mg for 4 days (days 2-5) PO fluticasone furoate 27.5 mcg/actuation (Flonase Sensimist) 2 sprays intranasal DAILY levonorgestrel-ethinyl estrad 0.1-20 mg-mcg (Vienva) 1 tab PO DAILY Tobacco use date assessed: 09/05/24 Dental Screening Dental Screen Date: 09/05/24 Did you have a dental visit in the last 12 months?: Yes Did you have a dental problem in the last 6 months where you did not have access to dental care?: No Was dental information given to patient?: Patient has dentist [facility] Medical History (Updated 09/05/24 @ 14:04 by Ifrah Rios PA-C) Acute bacterial pharyngitis Sore throat Surgical History History of removal of cyst (~2021) History of removal of cyst History of wisdom tooth extraction Family History Mother Endometriosis Diverticulitis Social History Housing: House Alcohol intake: current Alcohol intake frequency: holidays/special occasions only Patient Tobacco Use Status: Never used Tobacco e-Cigarette/Vaping Use: Never Used Second Hand Smoke Exposure: No service: No Current occupational status: employed 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 1. Little interest or pleasure in doing things: not at all 2. Feeling down, depressed, or hopeless: not at all 3. Trouble falling or staying asleep, or sleeping too much: not at all 4. Feeling tired or having little energy: not at all 5. Poor appetite or overeating: not at all 6. Feeling bad about yourself - or that you are a failure or have let yourself or your family down: not at all 7. Trouble concentrating on things, such as reading the newspaper or watching television: not at all 8. Moving or speaking so slowly that other people could have noticed. Or the opposite - being so fidgety or restless that you have been moving around a lot more than usual: not at all 9. Thoughts that you would be better off or of hurting yourself in some way: not at all Total score: 0 Depression Screening Interpretation: Negative Depression Screening Done: Yes 77198 - PHQ-9 Billing: Yes Source: Developed by Drs. Danish Hernandez, Edilia Mcdonald, Nanod Payne and colleagues, with an educational barb from [employer]. Thrive Questionnaire Date Thrive assessed: 09/05/24 I am a: Patient What is your living situation today?: I have a steady place to live Within the past 12 months, did the food you bought not last and you didn't have the money to get more?: Never true Within the past 12 months, did you worry whether your food would run out before you got money to buy more?: Never true Do you have trouble paying for medicines?: No Do you have trouble getting transportation to medical appointments?: No Do you have trouble paying your heating and electricity bill?: No Do you have trouble taking care of your child, family member or friend?: No Do you have trouble with day-to-day activities such as bathing, preparing meals, shopping, managing finances, etc.?: No Are you currently unemployed and looking for a job?: No Are you interested in more education?: No Please select the resources that you would like help with: None Currently or been in a relationship where the following occur: No concerns reported THRIVE Score: 0 AUDIT C Alcohol Use Questionnaire (AUDIT-C) 1. How often do you have a drink containing alcohol?: Never 2. How many drinks containing alcohol do you have on a typical day when you are drinking?: 1 or 2 3. How often do you have six or more drinks on one occasion?: Never Total Score: 0 Score Reviewed/Action Taken: Yes ALONSO-7 AMB Questionnaire ALONSO-7 Date ALONSO - 7 assessed: 09/05/24 Feeling nervous, anxious, or on edge: 0 = Not at all Not being able to stop or control worryin = Not at all Worrying too much about different things: 0 = Not at all Trouble relaxin = Not at all Being so restless that it is hard to sit still: 0 = Not at all Becoming easily annoyed or irritable: 0 = Not at all Feeling afraid as if something awful might happen: 0 = Not at all Total ALONSO-7 score (0-4 normal; 5-9 mild; 10-14 moderate; 15-21 severe): 0 Source: Developed by Drs. Danish Hernandez, Edilia Mcdonald, Nando Payne and colleagues, with an educational barb from [employer]. ALONSO-7 Assessment Billing ALONSO-7 Assessment Tool: ALONSO-7 Assessment 04488 Physical exam (Primary Care) Tobacco/Smoking Status: Tobacco use Status Tobacco use date assessed 09/05/24 09/05/24 13:14 Patient Tobacco Use Status Never used Tobacco 09/05/24 13:14 e-Cigarette/Vaping Use Never Used 09/05/24 13:14 PHQ-9: PHQ-9 Score PHQ-9: Total score 0 09/05/24 13:14 Depression Screening Interpretation: Negative Thrive Assessment: Date of Thrive Assessment Date Thrive assessed 09/05/24 09/05/24 13:14 Currently or been in a relationship where the following occur: No concerns reported Telehealth Telehealth Telehealth Platform: [facility] Location of provider rendering services: practice address Location of patient: address on file Patient Identification confirmed using: Name, : Yes Telehealth method: video Patient verbally consented to treatment: Yes Patient verbally consented to billing insurance company: Yes Patient informed of any privacy concerns related to visit: Yes Minutes spent on Phone/Video with Pt.: 15 Coding Level of Care Code Tele New Pt Level 4 (20720) Diagnoses Sore throat J02.9 Acute bacterial pharyngitis J02.8; B96.89 Additional Codes PHQ-9 - 05145 - PHQ-9 Billing: Yes ([id number]) ALONSO-7 Assessment Billing - ALONSO-7 Assessment Tool: ALONSO-7 Assessment 02749 ([id number]) Assessment & Plan Assessment & Plan (1) Sore throat: Code(s): J02.9 - Acute pharyngitis, unspecified Category: Medical Plan: Patient being started on azithromycin (2) Acute bacterial pharyngitis: Code(s): J02.8 - Acute pharyngitis due to other specified organisms; B96.89 - Other specified bacterial agents as the cause of diseases classified elsewhere Category: Medical Plan: Patient being started on azithromycin. Plan Plan - I will initiate antibiotic therapy with a azithromycin due to the patient?s allergy to penicillin. - I have discussed ordering a rapid strep test and COVID-19 swab to rule out concurrent infections. - I will provide prescriptions to be filled at the patient's specified pharmacy. - I will instruct the patient to seek immediate care if symptoms worsen, particularly with fever or inability to swallow. Orders: Orders Strep A Nucleic Acid Today J02.9 - Acute pharyngitis, unspecified SARS-CoV2/FLU/RSV Today J02.9 - Acute pharyngitis, unspecified Medications: New azithromycin For 250 mg dose pack: take 500 mg today (day 1), then 250 mg for 4 days (days 2-5) PO 6 tabs 0RF Patient Instructions: Patient Instructions - Begin taking the prescribed antibiotics as directed. - Seek further testing for strep throat and COVID-19 as discussed. - Maintain hydration and monitor symptom progression. - Return for evaluation if experiencing increased fever, difficulty swallowing, or any concerning changes in symptoms. Scribe Plan - Not visible on output: History of Present Illness The patient is a 43-year-old female presenting with a sore throat. She reports f eeling unwell since Sunday of the previous week with symptoms resembling a severe head cold. Symptoms worsened earlier this week, and she noted significant throat pain starting yesterday afternoon. The right tonsil demonstrated notable inflammation along with white spots and a large pustule that ruptured during the night, causing sharp pain. The patient describes persistent swelling of the right tonsil despite the rupture of the pustule. She reports hoarseness of voice, which exacerbates with prolonged talking. Additionally, she experiences discomfort radiating to the right ear, corresponding to the side of the affliction. Despite these symptoms, she maintains her ability to swallow, albeit with discomfort and dryness. Current concerns include the possibility of more than a simple cold given the persistence and development of symptoms. Review of Systems - ENT: Reports sore throat, hoarseness, right-sided tonsil inflammation with pus, and right ear pain. Denies difficulty swallowing. - Respiratory: Reports no symptoms. Physical Exam Appearance: Alert. Oriented X3. No acute distress. Throat: Patient was able to show me her throat with a camera and a flashlight and her posterior pharynx was mildly erythematous for uvula was midline and she did not have a muffled voice. She had moist mucous membranes. No trismus drooling or stridor was noted. No evidence of peritonsillar abscess or pharyngeal abscess. Patient tolerating secretions well. Plan - I will initiate antibiotic therapy with a azithromycin due to the patient?s allergy to penicillin. - I have discussed ordering a rapid strep test and COVID-19 swab to rule out concurrent infections. - I will provide prescriptions to be filled at the patient's specified pharmacy. - I will instruct the patient to seek immediate care if symptoms worsen, particularly with fever or inability to swallow. Patient was informed and verbally consented to the use of an ambient scribe for clinic note documentation during this visit. Discussion Notes I discussed with the patient the findings suggestive of acute tonsillitis, likely bacterial in nature. I explained the need for initiating antibiotic therapy, given her symptoms and the rupture of a pustule on her tonsil. We discussed the importance of monitoring her symptoms, including the potential for a peritonsillar abscess, should her difficulty swallowing or fever escalate. I offered additional testing, such as a strep test and COVID-19 swab, as a precautionary measure. The patient expressed understanding and consented to the treatment plan. I advised her to visit the emergency department or return for evaluation if her symptoms became more severe or alarming. Patient Instructions - Begin taking the prescribed antibiotics as directed. - Seek further testing for strep throat and COVID-19 as discussed. - Maintain hydration and monitor symptom progression. - Return for evaluation if experiencing increased fever, difficulty swallowing, or any concerning changes in symptoms.
--- OUTSIDE RECORDS SUMMARY | 2024-09-05 13:42 | XMS_ITS ---
Author Organization Danish Jacob DO, FACP Address [address] [place] [address] [phone] Care Team Providers Care [place] Name Role Phone Danish Jacob Primary Care Provider REASON FOR VISIT told patient to call Encounters Encounter Location Date Provider Diagnosis Danish Jacob DO, FACP [address] [place] [address] [id number] 06/06/2024 Danish Jacob PLAN OF TREATMENT No Information
--- OUTSIDE RECORDS SUMMARY | 2024-09-05 13:43 | XMS_ITS | Patient Health Record ---
Author Organization Danish Jacob DO, FAC Address [address] [place] [phone] Care Team Providers Care Piped Pocket Machine Operator Name Role Phone Danish Jacob Primary Care Provider [phone] ALLERGIES No Known Allergies RESULTS Component Value Reference Range Notes MAMMOGRAM, SCREENING Reviewed date:01/09/2024 05:33:49 PM Interpretation:Negative Performing Lab: Notes/Report: Negative Complete Blood Count Auto Di ff Reviewed date:05/30/2024 09:34:29 AM Interpretation:Normal Performing Lab:[facility], [address] [place] [phone] Notes/Report: White Blood Count 8.0 4.8-10.8 X10*3/uL Red Blood Count 4.60 4.20-5.50 X10*6/uL Hemoglobin 14.1 12.0-16.0 g/dl Hematocrit 39.3 37.0-47.0 % Mean Corpuscular Volume 85.4 80.0-98.0 fL Mean Corpuscular Hemoglobin 30.7 27.0-33.0 pg Mean Corpuscular HGB Conc 35.9 31.0-35.0 g/dl Red Cell Distribution Width 13.1 11.0-16.0 % Platelet Count 243 160-400 X10*3/uL Mean Platelet Volume 9.8 9.4-12.3 fL Neutrophils Percent Auto 57.5 45-73 % Imm Gran Pct Auto 0.3 0.0-0.4 % Lymphocytes Percent Auto 29.8 20-40 % Monocytes Percent Auto 11.2 2-11 % Eosinophils Percent Auto 0.9 0-4 % Basophils Percent Auto 0.3 0-2 % NRBC Pct Auto 0.0 0.0-0.2 /100WBC Neutrophils Absolute Auto 4.6 2.0-8.3 x10*3/u L Imm Gran Abs Auto 0.02 0.00-0.03 X10*3/uL Lymphocytes Absolute Auto 2.4 1.2-4.9 X10*3/u L Monocytes Absolute Auto 0.9 0.1-1.2 X10*3/uL Eosinophils Absolute Auto 0.1 0.0-0.4 X10*3/u L Basophils Absolute Auto 0.0 0.0-0.2 X10*3/uL NRBC Abs Auto 0.000 0.0-0.012 X10*3/uL Comprehensive Met. Panel Reviewed date:05/30/2024 09:34:29 AM Interpretation:Normal Performing Lab:[facility], [address] [place] [phone] Notes/Report: Sodium 137 135-145 mmol/L Potassium 3.8 3.3-5.1 mmol/L Chloride 106 96-108 mmol/L Carbon Dioxide 19 22-29 mmol/L Anion Gap 16 12-20 Blood Urea Nitrogen 5 9-16 mg/dL Creatinine 0.66 0.5-1.4 mg/dL Creatinine Clr Calc Pharmacy 105.0 Provided height and weight: 167.64 cm, 62.09 kg. eGFR (calculated from the MDRD study equation) and eCrCl (calculated from the Cockcroft-Gault equation) are based on different parameters and may not yield comparable results. If eCrCl result is absurd, please check patient's height/weight. Estimated Glomerular Filt Rate > 60 NOTE: For -Japanese individuals, multiply the result by 1.210. Chronic Kidney Disease: Estimated GFR < 60 mL/min/1.73m2 Severe Kidney Disease: Estimated GFR < 15 mL/min/1.73m2 Glucose Random 92 60-115 mg/dL Calcium 9.1 8.4-10.2 mg/dL Bilirubin Total 0.8 0.0-1.0 mg/dL Aspartate Amino Transferase 27 5-31 U/L Slight Hemolysis.Interpret result with caution. Alanine Aminotransferase 11 0-31 U/L Total Protein 7.5 6.5-8.0 g/dL Albumin Level 3.8 3.5-5.0 g/dL Alkaline Phosphatase 53 39-117 U/L REASON FOR REFERRAL Reason CSE Diagnosis 1 Encounter for genera l adult medical examination without abnormal findings (Z00.00) Referral Organization Danish Woods FACP Referring Provider First Name Danish Referring Provider Last Name Nidia Referring Provider Speciality Internal M edicine Referred Provider [facility] Referred Provider Specialty Dermatology General Notes Keli Langford 4 11:27:31 AM EDT > Referral faxed prior to scheduling. Referral Priority Routine Reason Possible adverse lucian ction to amoxicillin Diagnosis 1 Allergy, unspecified , initial encounter (T78.40XA) Referral Organization Danish Woods FACP Referring Provider First Name Danish Referring Provider Last Name Nidia Referring Provider Speciality Internal M edicine Referred Provider Mandeep Wise Referred Provider Specialty Allergy/Immu nology General Notes Jerrica Canela 024 01:10:08 PM EDT > referral faxed; specialist's office will contact patient. Referral Priority Routine Referral Appointment Date 07/24/2024 MEDICATIONS Medication SIG (Take, Route, Frequency, Duration) Notes Start Date End Date Status levoFLOXacin 500 MG 1 tablet Orally Once a day for 7 days 05/29/2024 Active Amoxicillin 500 MG 1 capsule Orally Thr ee times a day for 7 days 11/21/2023 Active Sulfacetamide Sodium 10 % 1 drop into af fected eye Ophthalmic Four times a day for 3 days 11/21/2023 Active Amoxicillin-Pot Clavulanate 875-125 MG 1 tablet with food Orally Twice a day for 7 days 05/28/2024 Active IMMUNIZATIONS Vaccine Route Administration Date Status Comme nts Influenza Quad IM Intramuscular 05/23/2016 Administered Influenza Quad IM Intramuscular 05/03/2020 Administered Influenza Quad Unknown 05/05/2018 Administered COVID-19 Moderna Vaccine Unknown 12/15/2020 Administere d Influenza Quad Unknown 05/27/2017 Administered Influenza Quad Unknown 05/07/2021 Administered Td (adult) Unknown 12/29/2019 Administered Influenza Quad Unknown 08/12/2015 Administered COVID-19 Moderna Vaccine Unknown 11/17/2020 Administere d COVID-19 Moderna Vaccine Unknown 06/19/2021 Administere d Menactra Unknown 08/05/2017 Administered COVID-19 Pfizer Bivalent Unknown 04/14/2022 Administere d COVID-19 Moderna Vaccine Unknown 10/31/2020 Administere d Influenza Quad Unknown 04/07/2022 Administered SOCIAL HISTORY Tobacco Use: Social History Observation Description Date Details (start date - stop date) Never Smoker NA - NA Sex Assigned At : Social History Observation Description Sex Assigned At Unknown Tobacco Use/Smoking Question Answer Notes Patient is a nonsmoker Additional Findings: Tobacco Non-User Cu rrent non-smoker, currently using no form of tobacco Alcohol Screen Question Answer Notes Did you have a drink containing alcohol in the p ast year? No Points 0 Interpretation Negative PROBLEMS Problem Type ICD Code Onset Dates Problem Status W/U Status Risk SNOMED Code Notes Problem Situational anxiety (F41.8) Active confirmed 030407973 Problem Hypercholesterolemia (E78.00) Active confirmed 17094629 Problem Gastroesophageal ref lux disease, unspecified whether esophagitis present (K21.9) Active confirmed 461484281 Problem Constipation, unspecified constipation type (K59.00) Active confirmed 38355245 Problem Environmental allerg ies (Z91.09) Active confirmed 543381644 VITAL SIGNS Height 66.00 in 11/13/2023 Weight 140 lbs 11/13/2023 BMI 22.59 kg/m2 11/13/2023 Encounters Encounter Location Date Provider Diagnosis Danish Jacob DO, [facility] [address] [place], [place] [phone] 11/21/2023 Danish Jacob DO, [facility] [address] [place], [place] [phone] 05/28/2024 Danish Jacob DO, [facility] [address] [place], [place] [phone] 05/29/2024 Danish Jacob DO, [facility] [address] [place], [place] [id number] 05/30/2024 Danish Jacob DO, [facility] [address] [place], [place] [id number] 05/30/2024 Danish Jacob DO, [facility] [address] [place], [place] [id number] 06/02/2024 Danish Jacob DO, [facility] [address] [place], [place] [id number] 06/06/2024 Danish Jacob DO, [facility] [address] [place], [place] [id number] 11/13/2023 Danish Jacob Encounter for genera l adult medical examination without abnormal findings Z00.00 ; Encounter for screening mammogram for malignant neoplasm of breast Z12.31 and Left hip pain M25.552 Danish Jacob DO [address] [place], [place] [id number] 11/09/2023 Danish Jacob DO, FAC [address] [place], [place] [id number] 11/09/2023 Danish Peng Ronaldo Nidia DO, [facility] [address] [place], [place] [phone] 11/11/2023 Danish Jacob ASSESSMENTS Encounter Date Diagnosis Assessment Notes Treatment Notes Treatment Clinical Notes 11/13/2023 Encounter for general adult medical examination without abnormal findings (ICD-10 - Z00.00) Sees WOOD CRAFTER. Sees Optometry 11/13/2023 Encounter for screening mammogram for malignant neoplasm of breast (ICD-10 - Z12.31) 11/13/2023 Left hip pain (ICD-10 - M25.552) PLAN OF TREATMENT Pending Test Test Name Order Date CBC With Differential/Platelet MAMMOGRAM DIGITAL BILATERAL SCREEN G0202 11/01/2022 MAMMOGRAM DIGITAL BILATERAL SCREEN G0202 11/13/2023 Liver Panel 11/13/2023 Basic Metabolic Panel Fasting 11/13/2023 Lipid Panel 11/13/2023 Vitamin D 25-OH Total 11/13/2023 TSH reflex Free T4 11/13/2023 XR hip LT min 2V 11/13/2023 Insurance Providers Payer Name Payer Address Payer Phone Subscriber Number Group Number Insured Name Patient Relationship to Insured Coverage Start Date Coverage End Date [facility] [address] [place], [place] [phone] [id number] Maritza Sage Self - patient is the insured MEDICAL (GENERAL) HISTORY Medical History History ICD Code acne allergies hypercholesterolemia Gastroesophageal reflux disease, unspeci fied whether esophagitis present K21.9 Strain of abdominal muscle, initial enco unter S39.011A Surgical History Surgery Date(Month/Year) wisdom teeth extraction cyst removal
--- OUTSIDE RECORDS SUMMARY | 2024-09-05 13:43 | XMS_ITS ---
Author Organization Danish Jacob DO, FACP Address [address] [place] [phone] Care Team Providers Care Roving Or Yarn Color Checker Name Role Phone Danish Jacob Primary Care Provider REASON FOR VISIT Needs call back from office Encounters Encounter Location Date Provider Diagnosis Danish Jacob DO, FACP [address] [place] [phone] 05/30/2024 Danish Jacob PLAN OF TREATMENT No Information
--- OUTSIDE RECORDS SUMMARY | 2024-09-05 13:43 | XMS_ITS ---
Author Organization Danish Jacob DO, FACP Address [address] [place] [phone] Care Team Providers Care Youth Career Specialist Name Role Phone Danish Jacob Primary Care Provider REASON FOR VISIT FYI only Encounters Encounter Location Date Provider Diagnosis Danish Jacob DO, FACP [address] [place] [phone] 06/02/2024 Danish Jacob PLAN OF TREATMENT No Information
== END 2024-09-05 13:58 | disposition home or self-care (01) ==
LOC: HO.HMCH 13:09
PROVIDERS: PCP Internal Medicine; Visit Provider Physician Assistant Medical
DX: J02.9 Acute pharyngitis, unspecified (principal); J02.8 Acute pharyngitis due to other specified organisms; B96.89 Other specified bacterial agents as the cause of diseases classified elsewhere

== ENCOUNTER → 2024-09-05 13:09 | Outpatient (BNVA) | payer BC, SELFPAY | PROVIDERS: PCP Internal Medicine; Visit Provider Physician Assistant Medical | DX: J02.8 Acute pharyngitis due to other specified organisms (principal); B96.89 Other specified bacterial agents as the cause of diseases classified elsewhere | CPT/HCPCS: 96127 ==

== ENCOUNTER 2024-11-18 08:59 | Outpatient (AMB) | payer BC, SELFPAY ==
[2024-11-18 08:59] VITALS: BP 124/78; PULSE 77; RESP 14; TEMP 36.4; O2SAT 99; BMI 23.1
--- NOTE | 2024-11-18 08:59 | A.OFFPC_ITS ---
Vital Signs 11/18/24 08:59 Height 5 ft 6 in Weight 143 lb BMI 23.1 BP 124/78 Respiration 14 Pulse 77 Pulse Source Pulse Oximeter Temp 97.6 F Temp Source Temporal Artery Scan Pulse Oximetry (%) 99 Oxygen Delivery Method Room Air Intake Visit Reasons: physical Senior Trainer Required: No Accompanied by: Self / Same As Patient Allergies Penicillins Allergy (Intermediate, Verified 11/18/24 09:22) Hives Tobacco use date assessed: 11/18/24 Dental Screening Dental Screen Date: 11/18/24 Did you have a dental visit in the last 12 months?: Yes Did you have a dental problem in the last 6 months where you did not have access to dental care?: No Was dental information given to patient?: Patient has dentist [facility] Medical History Acute bacterial pharyngitis Sore throat Surgical History History of removal of cyst (~2021) History of removal of cyst History of wisdom tooth extraction Family History Mother Endometriosis Diverticulitis Social History Housing: House Alcohol intake: current Alcohol intake frequency: holidays/special occasions only Patient Tobacco Use Status: Never used Tobacco e-Cigarette/Vaping Use: Never Used Second Hand Smoke Exposure: No service: No Current occupational status: employed 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 1. Little interest or pleasure in doing things: not at all 2. Feeling down, depressed, or hopeless: not at all 3. Trouble falling or staying asleep, or sleeping too much: not at all 4. Feeling tired or having little energy: not at all 5. Poor appetite or overeating: not at all 6. Feeling bad about yourself - or that you are a failure or have let yourself or your family down: not at all 7. Trouble concentrating on things, such as reading the newspaper or watching television: not at all 8. Moving or speaking so slowly that other people could have noticed. Or the opposite - being so fidgety or restless that you have been moving around a lot more than usual: not at all 9. Thoughts that you would be better off or of hurting yourself in some way: not at all Total score: 0 Source: Developed by Drs. Danish Hernandez, Edilia Mcdonald, Nando Payne and colleagues, with an educational barb from [employer]. Thrive Questionnaire Date Thrive assessed: 11/18/24 I am a: Patient What is your living situation today?: I have a steady place to live Within the past 12 months, did the food you bought not last and you didn't have the money to get more?: Never true Within the past 12 months, did you worry whether your food would run out before you got money to buy more?: Never true Do you have trouble paying for medicines?: No Do you have trouble getting transportation to medical appointments?: No Do you have trouble paying your heating and electricity bill?: No Do you have trouble taking care of your child, family member or friend?: No Do you have trouble with day-to-day activities such as bathing, preparing meals, shopping, managing finances, etc.?: No Are you currently unemployed and looking for a job?: No Are you interested in more education?: No Please select the resources that you would like help with: None Currently or been in a relationship where the following occur: No concerns reported THRIVE Score: 0 AUDIT C Alcohol Use Questionnaire (AUDIT-C) 1. How often do you have a drink containing alcohol?: Monthly or less 2. How many drinks containing alcohol do you have on a typical day when you are drinking?: 1 or 2 3. How often do you have six or more drinks on one occasion?: Never Total Score: 1 ALONSO-7 AMB Questionnaire ALONSO-7 Date ALONSO - 7 assessed: 11/18/24 Feeling nervous, anxious, or on edge: 0 = Not at all Not being able to stop or control worryin = Not at all Worrying too much about different things: 0 = Not at all Trouble relaxin = Not at all Being so restless that it is hard to sit still: 0 = Not at all Becoming easily annoyed or irritable: 0 = Not at all Feeling afraid as if something awful might happen: 0 = Not at all Total ALONSO-7 score (0-4 normal; 5-9 mild; 10-14 moderate; 15-21 severe): 0 Source: Developed by Drs. Danish Hernandez, Edilia Mcdonald, Nando Payne and colleagues, with an educational barb from [employer]. Physical exam (Primary Care) Vital Signs: Last Vital Signs Temp 97.6 F 11/18/24 08:59 Pulse 77 11/18/24 08:59 Resp 14 11/18/24 08:59 BP 124/78 11/18/24 08:59 Pulse Ox 99 11/18/24 08:59 Oxygen Delivery Method Room Air 11/18/24 08:59 Care Plan Goal for BP management: BP in range BMI result Body Mass Index 23.1 Tobacco/Smoking Status: Tobacco use Status Tobacco use date assessed 11/18/24 11/18/24 09:06 Patient Tobacco Use Status Never used Tobacco 11/18/24 09:06 e-Cigarette/Vaping Use Never Used 11/18/24 09:06 PHQ-9: PHQ-9 Score PHQ-9: Total score 0 11/18/24 09:21 Thrive Assessment: Date of Thrive Assessment Date Thrive assessed 11/18/24 11/18/24 09:06 Currently or been in a relationship where the following occur: No concerns reported Coding Level of Care Code New Pt Prev Care 40-64y([id number]) Diagnoses Annual physical exam Z00.00 Assessment & Plan Assessment & Plan (1) Annual physical exam: Code(s): Z00.00 - Encounter for general adult medical examination without abnormal findings Plan: History of Present Illness The patient is a 43-year-old female presenting for an annual physical examination. She has no significant health concerns at this time. The patient uses Vienva for control and manages seasonal allergies with Jo-Ann and occasionally Flonase. She reports regular gynecological examinations with no issues noted. A mammogram was completed last year with plans for a follow-up this year. Social History - Employment: Works at [employer] in the [place]. - Living situation: Resides with her two sons and father. - Exercise: Attempts to exercise at least three days a week. Review of Systems - General: Denies any current health concerns. - Allergies: Reports seasonal allergies. - Gynecology: Reports regular gynecological examinations with no issues noted. Physical Exam General: Cooperative and healthy appearing Nutritional Appearance: Well nourished Orientation/consciousness: Patient oriented x3 Limitations: No limitations Head: Normal to inspection General: Appearance normal, both eyes and all related structures Neck: Normal visual inspection Chest: Normal palpation of entire chest wall Respiratory: Patient instructed to breathe, no issues noted. ormal respiratory effort Neurology: Patient oriented x3 Results Plan We will proceed with the patient's annual wellness evaluation, including a mammogram order to be completed at [facility]. Routine laboratory testing, including thyroid function, anemia screening, and blood glucose evaluation, will be conducted. Management of seasonal allergies will continue with Jo-Ann and Flonase as required without alterations to the current control with Vienva. Patient was informed and verbally consented to the use of an ambient scribe for clinic note documentation during this visit. Discussion Notes I discussed with the patient the plan for her annual physical examination, emphasizing the importance of completing her mammogram and routine blood work. I explained the rationale behind monitoring for thyroid function, anemia, and blood glucose as part of her routine wellness checks. The benefits of these assessments were reviewed, ensuring she is aware of why maintaining these checks is critical for her ongoing health. We also discussed continuing her current allergy medication regimen and ensuring she has adequate medication supply. Patient Instructions - Continue taking Vienva, Jo-Ann, and Flonase as prescribed. - Schedule and complete your mammogram at [facility]. - Undergo routine blood work including thyroid, anemia, and blood glucose tests. - Continue regular exercise and maintain a healthful lifestyle. - Return for a follow-up visit in one year or sooner if any health concerns arise. Orders: Orders Lipid Panel Today E78.5 - Hyperlipidemia, unspecified MM screening mammo BI Today Z12.31 - Encounter for screening mammogram for malignant neoplasm of breast Basic Metabolic Panel Today E78.5 - Hyperlipidemia, unspecified Complete Blood Count no Diff Today E78.5 - Hyperlipidemia, unspecified Liver Panel Today E78.5 - Hyperlipidemia, unspecified Thyroid Stimulating Hormone Today E78.5 - Hyperlipidemia, unspecified UA and rflx microscopic Today E78.5 - Hyperlipidemia, unspecified
== END 2024-11-18 09:24 | disposition home or self-care (01) ==
LOC: HO.HMCSH 08:59
PROVIDERS: PCP Internal Medicine; Visit Provider Internal Medicine
DX: Z00.00 Encounter for general adult medical examination without abnormal findings (principal)

== ENCOUNTER → 2024-11-18 08:59 | Outpatient (BNVA) | payer BC, SELFPAY | PROVIDERS: PCP Internal Medicine; Visit Provider Internal Medicine | DX: Z13.89 Encounter for screening for other disorder (principal) ==

== ENCOUNTER 2024-12-11 07:48 | Outpatient (REF) | payer BC, SELFPAY ==
[2024-12-11 10:46] LABS: Hematocrit 40.1 % (37.0-47.0); Hemoglobin 13.4 g/dl (12.0-16.0); Mean Corpuscular HGB Conc 33.4 g/dl (31.0-35.0); Mean Corpuscular Hemoglobin 30.2 pg (27.0-33.0); Mean Corpuscular Volume 90.3 fL (80.0-98.0); Mean Platelet Volume 10.2 fL (9.4-12.3); Platelet Count 267 X10*3/uL (160-400); Red Blood Count 4.44 X10*6/uL (4.20-5.50); Red Cell Distribution Width 13.7 % (11.0-16.0); White Blood Count 9.1 X10*3/uL (4.8-10.8)
[2024-12-11 11:05] LABS: Alanine Aminotransferase 13 U/L (0-31); Albumin Level 3.9 g/dL (3.5-5.0); Alkaline Phosphatase 46 U/L (39-117); Anion Gap 10 (12-20); Aspartate Amino Transferase 20 U/L (5-31); Bilirubin Direct 0.2 mg/dL (0.0-0.5); Bilirubin Total 0.7 mg/dL (0.0-1.0); Blood Urea Nitrogen 9 mg/dL (9-16); Calcium 8.8 mg/dL (8.4-10.2); Carbon Dioxide 26 mmol/L (22-29); Chloride 106 mmol/L (96-108); Cholesterol 203 mg/dL (<200); Estimated Glomerular Filt Rate > 60; Glucose Random 78 mg/dL (60-115); HDL Cholesterol 56 mg/dL (>40); LDL Cholesterol Calculated 129 mg/dL (<100); Potassium 3.6 mmol/L (3.3-5.1); Sodium 138 mmol/L (135-145); Triglycerides 92 mg/dL (<150)
[2024-12-11 11:15] LABS: Appearance Urine Cloudy; Color Urine Yellow; Glucose Urine UA Negative (Negative); Leukocyte Esterase Urine Small (1+) (Negative); Nitrite Urine Negative (Negative); PH 5.5 (5.0-9.0); UMIC TRIGGER UA YES; Urine Blood Negative (Negative); Urine Ketones Trace mg/dL (Negative); Urine Protein Negative (Neg-Trace)
[2024-12-11 11:25] LABS: Thyroid Stimulating Hormone 1.71 uIU/mL (0.32-4.0)
[2024-12-11 11:26] LABS: Bacteria Urine 2+ (None Seen); Hyaline Casts Urine 0-2 /LPF (0-2); RBC Urine 0-2 /HPF (0-2); WBC Urine 0-5 /HPF (0-5)
== END 2024-12-11 07:49 | disposition home or self-care (01) ==
LOC: HO.HMGCLDS 07:48
PROVIDERS: PCP Internal Medicine; Visit Provider Internal Medicine
DX: E78.5 Hyperlipidemia, unspecified (principal)
CPT/HCPCS: 36415; 80048; 80061; 80076; 81001; 84443; 85027

== ENCOUNTER 2025-02-16 08:58 | Outpatient (REF) | payer BC, SELFPAY ==
[2025-02-16 13:02] LABS: Hematocrit 41.8 % (37.0-47.0); Hemoglobin 13.9 g/dl (12.0-16.0); Mean Corpuscular HGB Conc 33.3 g/dl (31.0-35.0); Mean Corpuscular Hemoglobin 29.8 pg (27.0-33.0); Mean Corpuscular Volume 89.5 fL (80.0-98.0); NRBC Abs Auto 0.000 X10*3/uL (0.0-0.012); NRBC Pct Auto 0.0 /100WBC (0.0-0.2); Platelet Count 244 X10*3/uL (160-400); Red Blood Count 4.67 X10*6/uL (4.20-5.50); White Blood Count 9.4 X10*3/uL (4.8-10.8)
[2025-02-16 13:19] LABS: Alanine Aminotransferase 22 U/L (0-31); Albumin Level 4.3 g/dL (3.5-5.0); Alkaline Phosphatase 53 U/L (39-117); Anion Gap 12 (12-20); Aspartate Amino Transferase 28 U/L (5-31); Blood Urea Nitrogen 8 mg/dL (9-16); Calcium 9.0 mg/dL (8.4-10.2); Carbon Dioxide 27 mmol/L (22-29); Chloride 106 mmol/L (96-108); Estimated Glomerular Filt Rate > 60; Potassium 3.6 mmol/L (3.3-5.1); Sodium 141 mmol/L (135-145); Total Protein 7.1 g/dL (6.5-8.0)
[2025-02-19 23:48] LABS: Immunoglobulin A 248 mg/dL (47-310); Transglutaminase Ab IgG <1.0 U/mL
== END 2025-02-16 08:59 | disposition home or self-care (01) ==
LOC: HO.HMGCLDS 08:58
PROVIDERS: PCP Internal Medicine; Visit Provider Physician Assistant Medical
DX: K13.0 Diseases of lips (principal); K11.7 Disturbances of salivary secretion; R59.1 Generalized enlarged lymph nodes; Z13.31 Encounter for screening for depression; Z00.00 Encounter for general adult medical examination without abnormal findings; R10.9 Unspecified abdominal pain; R11.0 Nausea; R14.3 Flatulence
CPT/HCPCS: 36415; 80053; 82784; 85027; 85652; 86140; 86231; 86258; 86364; 96127

== ENCOUNTER 2025-02-16 08:58 | Outpatient (AMB) | payer BC, SELFPAY ==
[2025-02-16 09:05] VITALS: BP 114/82; PULSE 82; RESP 16; TEMP 37.5; O2SAT 99; BMI 22.6
--- NOTE | 2025-02-16 09:05 | MHC.PC.OV ---
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 Motorized Squad Required: No Accompanied by: Self / Same As Patient Allergies Penicillins Allergy (Intermediate, Verified 02/16/25 09:52) Hives Medication List - Last Reconciled 02/16/25 by Ifrah Rios PA-C fluticasone furoate 27.5 mcg/actuation (Flonase Sensimist) 2 sprays intranasal DAILY hydrocortisone 2.5% 1 appl topical BID-TID PRN levonorgestrel-ethinyl estrad 0.1-20 mg-mcg (Vienva) 1 tab PO DAILY prednisone 40 mg (2 x 20 mg) PO DAILY 5 days Tobacco use date assessed: 11/18/24 Dental Screening Dental Screen Date: 11/18/24 Did you have a dental visit in the last 12 months?: Yes Did you have a dental problem in the last 6 months where you did not have access to dental care?: No Was dental information given to patient?: Patient has dentist HPI ongoing issue with dry, cracked lips HPI Details The patient is a 44-year-old female presenting with cracked and swollen lips. The patient reports that her lips have been cracking and swelling for approximately two months. She denies any new medications or topical products that could have triggered the symptoms. The lips are described as itchy and burning, with noticeable swelling, and the patient has avoided wearing makeup due to the condition. Additionally, the patient has experienced gastrointestinal symptoms, including bloating, gas, and diarrhea, particularly after consuming pasta or bread. These symptoms are new and have led to suspicion of a possible gluten intolerance. The patient also reports a dry mouth and soreness under the tongue, with tenderness noted under the jaw, suggesting lymphadenopathy. She is currently on control and Jo-Ann for allergies, which have been consistent medications. [facility] Medical History (Updated 02/16/25 @ 10:08 by Ifrah Rios PA-C) Lymphadenopathy Xerostomia Cheilitis Nausea Flatus Abdominal cramps Acute bacterial pharyngitis Sore throat Surgical History History of removal of cyst (~2021) History of removal of cyst History of wisdom tooth extraction Family History Mother Endometriosis Diverticulitis Social History Housing: House Alcohol intake: current Alcohol intake frequency: holidays/special occasions only Patient Tobacco Use Status: Never used Tobacco e-Cigarette/Vaping Use: Never Used Second Hand Smoke Exposure: No service: No Current occupational status: employed 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 1. Little interest or pleasure in doing things: not at all 2. Feeling down, depressed, or hopeless: not at all 3. Trouble falling or staying asleep, or sleeping too much: not at all 4. Feeling tired or having little energy: not at all 5. Poor appetite or overeating: not at all 6. Feeling bad about yourself - or that you are a failure or have let yourself or your family down: not at all 7. Trouble concentrating on things, such as reading the newspaper or watching television: not at all 8. Moving or speaking so slowly that other people could have noticed. Or the opposite - being so fidgety or restless that you have been moving around a lot more than usual: not at all 9. Thoughts that you would be better off or of hurting yourself in some way: not at all Total score: 0 Depression Screening Interpretation: Negative Depression Screening Done: Yes 52254 - PHQ-9 Billing: Yes Source: Developed by Drs. Danish Hernandez, Edilia Mcdonald, Nando Payne and colleagues, with an educational barb from [employer]. Thrive Questionnaire Date Thrive assessed: 11/18/24 I am a: Patient What is your living situation today?: I have a steady place to live Within the past 12 months, did the food you bought not last and you didn't have the money to get more?: Never true Within the past 12 months, did you worry whether your food would run out before you got money to buy more?: Never true Do you have trouble paying for medicines?: No Do you have trouble getting transportation to medical appointments?: No Do you have trouble paying your heating and electricity bill?: No Do you have trouble taking care of your child, family member or friend?: No Do you have trouble with day-to-day activities such as bathing, preparing meals, shopping, managing finances, etc.?: No Are you currently unemployed and looking for a job?: No Are you interested in more education?: No Please select the resources that you would like help with: None Currently or been in a relationship where the following occur: No concerns reported THRIVE Score: 0 AUDIT C Alcohol Use Questionnaire (AUDIT-C) 1. How often do you have a drink containing alcohol?: Monthly or less 2. How many drinks containing alcohol do you have on a typical day when you are drinking?: 1 or 2 3. How often do you have six or more drinks on one occasion?: Never Total Score: 1 Score Reviewed/Action Taken: No ALONSO-7 AMB Questionnaire ALONSO-7 Date ALONSO - 7 assessed: 11/18/24 Feeling nervous, anxious, or on edge: 0 = Not at all Not being able to stop or control worryin = Not at all Worrying too much about different things: 0 = Not at all Trouble relaxin = Not at all Being so restless that it is hard to sit still: 0 = Not at all Becoming easily annoyed or irritable: 0 = Not at all Feeling afraid as if something awful might happen: 0 = Not at all Total ALONSO-7 score (0-4 normal; 5-9 mild; 10-14 moderate; 15-21 severe): 0 Source: Developed by Drs. Danish Hernandez, Edilia Mcdonald, Nando Payne and colleagues, with an educational barb from [employer]. ALONSO-7 Assessment Billing ALONSO-7 Assessment Tool: ALONSO-7 Assessment 81194 Review of Systems Const Details: - Dermatological: Reports cracked, swollen, and itchy lips for two months. - Gastrointestinal: Reports bloating, gas, and diarrhea after consuming pasta or bread. - Oral: Reports dry mouth and soreness under the tongue. - Lymphatic: Reports tenderness under the jaw. Physical exam (Primary Care) Vital Signs: Last Vital Signs Temp 99.5 F 02/16/25 09:05 Pulse 82 02/16/25 09:05 Resp 16 02/16/25 09:05 BP 114/82 02/16/25 09:05 Pulse Ox 99 02/16/25 09:05 Oxygen Delivery Method Room Air 02/16/25 09:05 Care Plan Goal for BP management: <140/90 at Goal BMI result Body Mass Index 22.6 normal bmi Tobacco/Smoking Status: Tobacco use Status Tobacco use date assessed 11/18/24 02/16/25 09:11 Patient Tobacco Use Status Never used Tobacco 02/16/25 09:11 e-Cigarette/Vaping Use Never Used 02/16/25 09:11 PHQ-9: PHQ-9 Score PHQ-9: Total score 0 02/16/25 09:11 Depression Screening Interpretation: Negative Thrive Assessment: Date of Thrive Assessment Date Thrive assessed 11/18/24 02/16/25 09:11 Currently or been in a relationship where the following occur: No concerns reported Const Other: Appearance: Alert. Oriented X3. No acute distress. Head: Normal external exam. Normocephalic. Atraumatic. Eyes: Pupils are equal, round, and reactive to light. Extraocular movements intact. Conjunctiva and sclera normal. Eyelids normal. Throat: Pharynx normal. Uvula midline. Moist mucous membranes. Lips appear erythematous with soft tissue swelling. No angioedema, lesions, rashes or signs of acute infection. No trismus drooling or stridor. No inner oral lesions. Patient has a normal voice. Tolerating secretions well. Neck: Normal inspection. Neck supple. Full range of motion. No meningeal signs. No neck mass noted. Mild lymphadenopathy under the jaw line. Cardiovascular: Normal heart rate and rhythm. Respiratory: No respiratory distress. Painless inspiration. Back: Full range of motion noted. Skin: Skin warm and dry. Normal skin color. Normal skin turgor. No rashes/lesions/lacerations noted. Extremities: Extremities exhibit normal range of motion. Coding Level of Care Code Est Pt Level 4 (64346) Complex EM visit Add On G2211 Diagnoses Cheilitis K13.0 Xerostomia K11.7 Lymphadenopathy R59.1 Additional Codes PHQ-9 - 08591 - PHQ-9 Billing: Yes ([id number]) ALONSO-7 Assessment Billing - ALONSO-7 Assessment Tool: ALONSO-7 Assessment 75334 ([id number]) Assessment & Plan Assessment & Plan (1) Cheilitis: Code(s): K13.0 - Diseases of lips Category: Medical Plan: The patient will be prescribed a topical hydrocortisone ointment to apply to the lips, avoiding ingestion. An oral prednisone course for five days is also recommended to reduce inflammation. (2) Xerostomia: Code(s): K11.7 - Disturbances of salivary secretion Category: Medical Plan: The patient is advised to maintain hydration and avoid irritants that may exacerbate dry mouth symptoms. (3) Lymphadenopathy: Code(s): R59.1 - Generalized enlarged lymph nodes Category: Medical Plan: The patient will be monitored for any progression of lymphadenopathy, with instructions to report any worsening symptoms. Plan Plan Patient was informed and verbally consented to the use of an ambient scribe for clinic note documentation during this visit. 1. Cheilitis The patient will be prescribed a topical hydrocortisone ointment to apply to the lips, avoiding ingestion. An oral prednisone course for five days is also recommended to reduce inflammation. 2. Possible Gluten Intolerance The patient will undergo blood tests for celiac disease to investigate possible gluten intolerance. A stool test for H. pylori will also be conducted to rule out other gastrointestinal issues. 3. Xerostomia The patient is advised to maintain hydration and avoid irritants that may exacerbate dry mouth symptoms. 4. Lymphadenopathy The patient will be monitored for any progression of lymphadenopathy, with instructions to report any worsening symptoms. Orders: Orders Comprehensive Met. Panel Today Z00.00 - Encounter for general adult medical examination without abnormal findings Transglutaminase IgA Today R10.9 - Unspecified abdominal pain, R11.0 - Nausea, R14.3 - Flatulence Endomysial IgA rflx Titer Today R10.9 - Unspecified abdominal pain, R11.0 - Nausea, R14.3 - Flatulence Celiac Diagnostic Gliadin TTG Today R10.9 - Unspecified abdominal pain, R11.0 - Nausea, R14.3 - Flatulence C Reactive Protein Today Z00.00 - Encounter for general adult medical examination without abnormal findings Erythrocyte Sedimentation Rate Today Z00.00 - Encounter for general adult medical examination without abnormal findings H pylori Ag Stool Today R10.9 - Unspecified abdominal pain, R11.0 - Nausea, R14.3 - Flatulence Complete Blood Count no Diff Today R10.9 - Unspecified abdominal pain, R11.0 - Nausea, R14.3 - Flatulence Medications: New hydrocortisone 2.5% 1 appl topical BID-TID PRN 454 grams 1RF itching prednisone 40 mg (2 x 20 mg) PO DAILY 10 tabs 0RF 5 days Patient Instructions: - Apply hydrocortisone ointment to lips, avoiding ingestion. - Take oral prednisone as prescribed for five days. - Undergo blood tests for celiac disease and a stool test for H. pylori. - Maintain hydration and avoid irritants for dry mouth. - Monitor for worsening symptoms and seek medical attention if necessary.
== END 2025-02-16 09:32 | disposition home or self-care (01) ==
LOC: HO.HMCSH 08:58
PROVIDERS: PCP Internal Medicine; Visit Provider Physician Assistant Medical
DX: K13.0 Diseases of lips (principal); K11.7 Disturbances of salivary secretion; R59.1 Generalized enlarged lymph nodes

== ENCOUNTER 2025-02-18 06:34 | Outpatient (REF) | payer BC, SELFPAY | END 2025-02-18 06:35 | disposition home or self-care (01) | LOC: HO.HMGCLNP 06:34 | PROVIDERS: PCP Physician Assistant Medical; Visit Provider Physician Assistant Medical | DX: R14.3 Flatulence (principal); R11.0 Nausea; R10.9 Unspecified abdominal pain | CPT/HCPCS: 87338 ==

== ENCOUNTER 2025-02-23 10:21 | Outpatient (AMB) | payer BC, SELFPAY ==
--- NOTE | 2025-02-23 10:10 | A.OFFPC_ITS ---
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 Accompanied by: Self / Same As Patient Allergies Penicillins Allergy (Intermediate, Verified 02/23/25 10:45) Hives Medication List - Last Reconciled 02/23/25 by Ifrah Rios PA-C fexofenadine (Jo-Ann Allergy) 180 mg PO DAILY hydrocortisone 2.5% 1 appl topical BID-TID PRN levonorgestrel-ethinyl estrad 0.1-20 mg-mcg (Vienva) 1 tab PO DAILY Tobacco use date assessed: 11/18/24 Dental Screening Dental Screen Date: 11/18/24 Did you have a dental visit in the last 12 months?: Yes Did you have a dental problem in the last 6 months where you did not have access to dental care?: No Was dental information given to patient?: Patient has dentist HPI Lab results HPI Details The patient is a 44-year-old female presenting with oral mucosal swelling and prednisone withdrawal symptoms. The oral mucosal swelling began recently, with symptoms including red lips, swollen tongue, and bleeding gums. The patient reports that these symptoms worsen upon eating, causing significant discomfort. There is no associated dyspnea, but the patient is concerned about potential allergic reactions. The patient recently completed a course of prednisone, with the last dose taken on Sunday. During the course, she experienced muscle weakness, brain fog, dry mouth, and anxiety, which have persisted post-therapy. The patient has a history of cat allergy and regularly takes Jo-Ann, which she believes helps manage her symptoms. Social History - The patient has a cat and is allergic to cats, requiring regular use of Jo-Ann. - Denies smoking and alcohol consumption . [facility] Medical History Allergies Lymphadenopathy Xerostomia Cheilitis Nausea Flatus Abdominal cramps Acute bacterial pharyngitis Sore throat Surgical History History of removal of cyst (~2021) History of removal of cyst History of wisdom tooth extraction Family History Mother Endometriosis Diverticulitis Social History Housing: House Alcohol intake: current Alcohol intake frequency: holidays/special occasions only Patient Tobacco Use Status: Never used Tobacco e-Cigarette/Vaping Use: Never Used Second Hand Smoke Exposure: No service: No Current occupational status: employed 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 1. Little interest or pleasure in doing things: not at all 2. Feeling down, depressed, or hopeless: not at all 3. Trouble falling or staying asleep, or sleeping too much: not at all 4. Feeling tired or having little energy: not at all 5. Poor appetite or overeating: not at all 6. Feeling bad about yourself - or that you are a failure or have let yourself or your family down: not at all 7. Trouble concentrating on things, such as reading the newspaper or watching television: not at all 8. Moving or speaking so slowly that other people could have noticed. Or the opposite - being so fidgety or restless that you have been moving around a lot more than usual: not at all 9. Thoughts that you would be better off or of hurting yourself in some way: not at all Total score: 0 Depression Screening Interpretation: Negative Depression Screening Done: Yes 64074 - PHQ-9 Billing: Yes Source: Developed by Drs. Danish Hernandez, Edilia Mcdonald, Nando Payne and colleagues, with an educational barb from [employer]. Thrive Questionnaire Date Thrive assessed: 11/18/24 I am a: Patient What is your living situation today?: I have a steady place to live Within the past 12 months, did the food you bought not last and you didn't have the money to get more?: Never true Within the past 12 months, did you worry whether your food would run out before you got money to buy more?: Never true Do you have trouble paying for medicines?: No Do you have trouble getting transportation to medical appointments?: No Do you have trouble paying your heating and electricity bill?: No Do you have trouble taking care of your child, family member or friend?: No Do you have trouble with day-to-day activities such as bathing, preparing meals, shopping, managing finances, etc.?: No Are you currently unemployed and looking for a job?: No Are you interested in more education?: No Please select the resources that you would like help with: None Currently or been in a relationship where the following occur: No concerns reported THRIVE Score: 0 AUDIT C Alcohol Use Questionnaire (AUDIT-C) 1. How often do you have a drink containing alcohol?: Monthly or less 2. How many drinks containing alcohol do you have on a typical day when you are drinking?: 1 or 2 3. How often do you have six or more drinks on one occasion?: Never Total Score: 1 Score Reviewed/Action Taken: No ALONSO-7 AMB Questionnaire ALONSO-7 Date ALONSO - 7 assessed: 11/18/24 Feeling nervous, anxious, or on edge: 0 = Not at all Not being able to stop or control worryin = Not at all Worrying too much about different things: 0 = Not at all Trouble relaxin = Not at all Being so restless that it is hard to sit still: 0 = Not at all Becoming easily annoyed or irritable: 0 = Not at all Feeling afraid as if something awful might happen: 0 = Not at all Total ALONSO-7 score (0-4 normal; 5-9 mild; 10-14 moderate; 15-21 severe): 0 Source: Developed by Drs. Danish Hernandez, Edilia Mcdonald, Nando Payne and colleagues, with an educational barb from [employer]. ALONSO-7 Assessment Billing ALONSO-7 Assessment Tool: ALONSO-7 Assessment 30641 Review of Systems Const Details: - Oral: Reports red lips, swollen tongue, and bleeding gums. Denies white spots on the tongue currently. - Musculoskeletal: Reports muscle weakness and pain, particularly in the legs. - Neurological: Reports brain fog and anxiety. - Respiratory: Denies dyspnea. Physical exam (Primary Care) Tobacco/Smoking Status: Tobacco use Status Tobacco use date assessed 11/18/24 02/23/25 10:17 Patient Tobacco Use Status Never used Tobacco 02/23/25 10:17 e-Cigarette/Vaping Use Never Used 02/23/25 10:17 PHQ-9: PHQ-9 Score PHQ-9: Total score 0 02/23/25 10:23 Depression Screening Interpretation: Negative Thrive Assessment: Date of Thrive Assessment Date Thrive assessed 11/18/24 02/23/25 10:17 Currently or been in a relationship where the following occur: No concerns reported Telehealth Telehealth Telehealth Platform: Telephone Location of provider rendering services: practice address Location of patient: address on file Patient Identification confirmed using: Name, : Yes Telehealth method: voice only Patient verbally consented to treatment: Yes Patient verbally consented to billing insurance company: Yes Patient informed of any privacy concerns related to visit: Yes Minutes spent on Phone/Video with Pt.: 15 Results Reviewed Results Reviewed: - Labs: All tests returned normal results. Coding Level of Care Code Tele Est Pt Level 4 (57201) Complex EM visit Add On G2211 Diagnoses Allergies T78.40XA Additional Codes ALONSO-7 Assessment Billing - ALONSO-7 Assessment Tool: ALONSO-7 Assessment 95454 ([id number]) PHQ-9 - 12197 - PHQ-9 Billing: Yes ([id number]) Assessment & Plan Assessment & Plan (1) Allergies: Code(s): T78.40XA - Allergy, unspecified, initial encounter Category: Medical Plan: The patient will be referred to an retirement administrator for further evaluation of potential allergic reactions causing oral mucosal swelling. An EpiPen will be prescribed for emergency use in case of severe swelling or respiratory distress. Plan Plan Patient was informed and verbally consented to the use of an ambient scribe for clinic note documentation during this visit. 1. Oral Mucosal Swelling The patient will be referred to an retirement administrator for further evaluation of potential allergic reactions causing oral mucosal swelling. An EpiPen will be prescribed for emergency use in case of severe swelling or respiratory distress. 2. Prednisone Withdrawal Symptoms The patient is advised to monitor symptoms post-prednisone and report any worsening conditions. Sour candies and Biotin mouthwash are recommended to alleviate dry mouth symptoms. 3. Allergic Reactions The patient is advised to continue taking Jo-Ann for allergy management. Referral to an retirement administrator is planned for comprehensive allergy testing. I discussed with the patient the potential for allergic reactions causing her symptoms and the importance of seeing an retirement administrator for further evaluation. We talked about the use of an EpiPen in case of severe symptoms and the need to monitor her condition closely. I also advised her on managing dry mouth symptoms with sour candies and Biotin mouthwash. We agreed on a follow-up plan after the retirement administrator's evaluation. Orders: Referrals Dermatology Referral T78.40XA - Allergy, unspecified, initial encounter Medications: New epinephrine for 2 doses 0.3 mg (0.3 mL) IM Q10M PRN 2 ea 1RF anaphylaxis Patient Instructions: I discussed with the patient the potential for allergic reactions causing her symptoms and the importance of seeing an retirement administrator for further evaluation. We talked about the use of an EpiPen in case of severe symptoms and the need to monitor her condition closely. I also advised her on managing dry mouth symptoms with sour candies and Biotin mouthwash. We agreed on a follow-up plan after the retirement administrator's evaluation.
== END 2025-02-23 10:59 | disposition home or self-care (01) ==
LOC: HO.HMCSH 10:21
PROVIDERS: PCP Physician Assistant Medical; Visit Provider Physician Assistant Medical
DX: T78.40XA Allergy, unspecified, initial encounter (principal)

== ENCOUNTER → 2025-02-23 10:21 | Outpatient (BNVA) | payer BC, SELFPAY | PROVIDERS: PCP Physician Assistant Medical; Visit Provider Physician Assistant Medical | DX: T78.40XA Allergy, unspecified, initial encounter (principal); X58.XXXA Exposure to other specified factors, initial encounter; Y93.9 Activity, unspecified; Y92.9 Unspecified place or not applicable; Y99.9 Unspecified external cause status; Z79.899 Other long term (current) drug therapy | CPT/HCPCS: 96127; 98966 ==

== ENCOUNTER 2025-03-21 09:27 | Outpatient (AMB) | payer BC, SELFPAY ==
[2025-03-21 09:31] VITALS: BP 112/76; PULSE 83; TEMP 36.8; O2SAT 99; BMI 22.6
--- NOTE | 2025-03-21 09:31 | AM.OFFWIN_ITS ---
Intake Vital Signs 03/21/25 09:31 Height 5 ft 6 in Weight 140 lb BMI 22.6 BP 112/76 Blood Pressure Location Lt brachial Position Sitting Pulse 83 Pulse Source Pulse Oximeter Temp 98.3 F Temp Source Oral Pulse Oximetry (%) 99 Oxygen Delivery Method Room Air Intake Visit Reasons: EP- [place] eye, both eyes Intake Note: pt is here for c.o bilateral redness in eyes, ongoign for 2 weeks. Patient Tobacco Use Status: Never used Tobacco Allergies Penicillins Allergy (Intermediate, Verified 03/21/25 09:39) Hives Do you need a note to return to daycare/school/sports/work: No HPI EP- [place] eye, both eyes HPI Details Patient is a 44-year-old female with new diagnosis of HSV 2 weeks ago, about 3 weeks into symptoms with oral lesions that were apparently presenting more like perioral or atopic dermatitis/cheilitis and she was initially prescribed steroids, for which she had a severe reaction HSV diagnosed by the honing machine operator tool about 2 weeks ago, and is on a 1 month course of Valtrex Apparently honing machine operator tool told patient not do worry about symptoms to the eyes when they began, and that there was nothing they could do and she should just continue the Valtrex She describes initially left eye had discharge and swelling that started on the lower eyelid at the medial aspect, and swelling and crusting as well as an itchy irritated feeling have been worsening over the last 2 weeks, now spreading to the right eye There is an underlying atopic versus allergic dermatitis history with a flare-up on her left foot currently Denies vision changes, headache or dizziness, severe eye pain, eye pain fever chills, nausea, ear pain, respiratory symptoms PFSH Medical History Allergies Lymphadenopathy Xerostomia Cheilitis Nausea Flatus Abdominal cramps Acute bacterial pharyngitis Sore throat Surgical History History of removal of cyst (~2021) History of removal of cyst History of wisdom tooth extraction Family History Mother Endometriosis Diverticulitis Social History Housing: House Alcohol intake: current Alcohol intake frequency: holidays/special occasions only Patient Tobacco Use Status: Never used Tobacco e-Cigarette/Vaping Use: Never Used Second Hand Smoke Exposure: No service: No Current occupational status: employed 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 Cognitive needs: No Hearing needs: No Vision needs: Yes (reading glasses) Review of Systems Const All systems reviewed & are unremarkable except as noted in HPI and below Physical Exam Exam Exam: Bilateral lower eyelids are edematous, erythematous and thickened with cracking, especially the right side, with a crust over the eyelash areas Minimal injection or erythema to the inner conjunctiva of the eyelids, as well as the sclera and upper eyelids No periorbital swelling otherwise, and no remarkable lesions or abnormalities to the face otherwise Pupils equal round reactive to light bilaterally, with extraocular motion intact Vital Signs: Last Vital Signs Temp 98.3 F 03/21/25 09:31 Pulse 83 03/21/25 09:31 BP 112/76 03/21/25 09:31 Pulse Ox 99 03/21/25 09:31 Oxygen Delivery Method Room Air 03/21/25 09:31 BMI result Body Mass Index 22.6 Assessment & Plan Assessment & Plan (1) Edema of eyelid of both eyes: Code(s): H02.843 - Edema of right eye, unspecified eyelid; H02.846 - Edema of left eye, unspecified eyelid Qualifiers: Eyelid: lower Qualified Code(s): H02.842 - Edema of right lower eyelid; H02.845 - Edema of left lower eyelid Plan: Patient with new diagnosis of HSV 2 weeks ago with oral lesions that were apparently presenting more like perioral dermatitis/cheilitis and is on a 1 month course of Valtrex (started 3 weeks into course of disease) At time of diagnosis, had started with similar presentation to the bilateral lower eyelids, that have worsened despite Valtrex Possible that underlying dermatitis issue has aggravated the HSV, or that the HSV is a worse case due to the dermatitis, and differential also includes conjunctivitis concomitant She also had been put on a course of steroids when symptoms 1st appeared, as cheilitis versus atopic dermatitis was initially suspected, and this might have changed course of presentation Will prescribe triamcinolone to use on the outer eyelids, or if this is too expensive she can continue using the hydroxyzine initially prescribed for her lips, as symptoms did improve with use She can also use the antibiotic drops prescribed to cover for bacterial infection Hydroxyzine written to help with itchy symptoms and swelling, especially at night She denies vision changes, but advised she be referred to Ophthalmology to rule out Keratitis or Keratoconjunctivitis She will follow up with PCP to discuss referral, as her insurance plan requires this, however to Ophthalmology locations were given to her to start the referral process [facility]ISE Medications: New hydroxyzine pamoate Can take a 2nd capsule at bedtime if needed, note this medication is very sedating- do not drive or do safety sensitive tasks while taking 25 mg PO BEDTIME PRN 20 caps 0RF pruritis polymyxin B sulf-trimethoprim 10,000 unit- 1 mg/mL while awake; do not exceed 6 doses in 24 hours 1 drp ophthalmic (eye) QID 10 mL 0RF 5 days triamcinolone acetonide 0.025% 1 appl topical BID 15 grams 0RF Coding Level of Care Code Est Pt Level 4 (16391) Diagnoses Edema of lower eyelid of both eyes H02.842; H02.845 Eyelid: lower
== END 2025-03-21 10:40 | disposition home or self-care (01) ==
LOC: HO.HMCWIC 09:27
PROVIDERS: PCP Physician Assistant Medical; Visit Provider Physician Assistant Medical
DX: H02.842 Edema of right lower eyelid (principal); H02.845 Edema of left lower eyelid

== ENCOUNTER 2025-04-23 10:54 | Outpatient (AMB) | payer BC, SELFPAY ==
[2025-04-23 10:55] VITALS: BP 106/90; PULSE 70; RESP 16; TEMP 36.2; O2SAT 100; BMI 23.0
--- NOTE | 2025-04-23 10:55 | MHC.PC.OV ---
Vital Signs 04/23/25 10:55 Height 5 ft 6 in Weight 142 lb 8 oz BMI 23.0 BP 106/90 H Blood Pressure Location Lt brachial Position Sitting Respiration 16 Pulse 70 Pulse Source Pulse Oximeter Temp 97.2 F Temp Source Temporal Artery Scan Pulse Oximetry (%) 100 Oxygen Delivery Method Room Air Intake Visit Reasons: Rash Operation Supervisor Required: No Accompanied by: Self / Same As Patient Allergies Penicillins Allergy (Intermediate, Verified 04/23/25 11:45) Hives Medication List - Last Reconciled 04/23/25 by Ifrah Rios PA-C cetirizine (All Day Allergy (cetirizine)) 10 mg PO DAILY PRN doxycycline monohydrate 100 mg PO DAILY PRN epinephrine 0.3 mg (0.3 mL) IM Q10M PRN hydrocortisone 2.5% 1 appl topical BID-TID PRN hydroxyzine pamoate 25 mg PO BEDTIME PRN ivermectin 1% 1 appl topical DAILY levonorgestrel-ethinyl estrad 0.1-20 mg-mcg (Vienva) 1 tab PO DAILY metronidazole 0.75% appl topical BID triamcinolone acetonide 0.025% 1 appl topical BID Tobacco use date assessed: 04/23/25 Dental Screening Dental Screen Date: 04/23/25 Did you have a dental visit in the last 12 months?: Yes Did you have a dental problem in the last 6 months where you did not have access to dental care?: No Was dental information given to patient?: Patient has dentist HPI Rash HPI Details The patient is a 44-year-old female presenting with a facial rash that has been persistent and worsening over time. The rash initially appeared on the face and has progressively involved the eyes and mouth. The cutlet maker pork has diagnosed it as rosacea and prescribed doxycycline and metronidazole cream. Despite treatment, the patient reports no significant improvement. The patient has also been evaluated for herpes simplex virus due to a positive blood test, although the rash does not clinically resemble herpes. She was prescribed valacyclovir, which did not result in improvement. The patient suspects a hormonal component, noting the rash flares before her menstrual cycle. She has a history of skin issues while on control in her 20s, which resolved upon discontinuation. Her OB has advised discontinuing control to assess its impact on the rash. Social History - Employment: The patient is currently working from home due to the facial rash. 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 Rosacea Facial rash Allergies Lymphadenopathy Xerostomia Cheilitis Nausea Flatus Abdominal cramps Acute bacterial pharyngitis Sore throat Surgical History History of removal of cyst (~2021) History of removal of cyst History of wisdom tooth extraction Family History Mother Endometriosis Diverticulitis Social History Housing: House Alcohol intake: current Alcohol intake frequency: holidays/special occasions only Patient Tobacco Use Status: Never used Tobacco e-Cigarette/Vaping Use: Never Used Second Hand Smoke Exposure: No service: No Current occupational status: employed 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 1. Little interest or pleasure in doing things: not at all 2. Feeling down, depressed, or hopeless: not at all 3. Trouble falling or staying asleep, or sleeping too much: not at all 4. Feeling tired or having little energy: not at all 5. Poor appetite or overeating: not at all 6. Feeling bad about yourself - or that you are a failure or have let yourself or your family down: not at all 7. Trouble concentrating on things, such as reading the newspaper or watching television: not at all 8. Moving or speaking so slowly that other people could have noticed. Or the opposite - being so fidgety or restless that you have been moving around a lot more than usual: not at all 9. Thoughts that you would be better off or of hurting yourself in some way: not at all Total score: 0 Depression Screening Interpretation: Negative Depression Screening Done: Yes 08088 - PHQ-9 Billing: Yes Source: Developed by Drs. Danish Hernandez, Edilia BNando Robbins and colleagues, with an educational barb from [employer]. Thrive Questionnaire Date Thrive assessed: 04/23/25 I am a: Patient What is your living situation today?: I have a steady place to live Within the past 12 months, did the food you bought not last and you didn't have the money to get more?: Never true Within the past 12 months, did you worry whether your food would run out before you got money to buy more?: Never true Do you have trouble paying for medicines?: No Do you have trouble getting transportation to medical appointments?: No Do you have trouble paying your heating and electricity bill?: No Do you have trouble taking care of your child, family member or friend?: No Do you have trouble with day-to-day activities such as bathing, preparing meals, shopping, managing finances, etc.?: No Are you currently unemployed and looking for a job?: No Are you interested in more education?: No Please select the resources that you would like help with: None Currently or been in a relationship where the following occur: No concerns reported THRIVE Score: 0 AUDIT C Alcohol Use Questionnaire (AUDIT-C) 1. How often do you have a drink containing alcohol?: Monthly or less 2. How many drinks containing alcohol do you have on a typical day when you are drinking?: 1 or 2 3. How often do you have six or more drinks on one occasion?: Never Total Score: 1 Score Reviewed/Action Taken: No ALONSO-7 AMB Questionnaire ALONSO-7 Date ALONSO - 7 assessed: 04/23/25 Feeling nervous, anxious, or on edge: 0 = Not at all Not being able to stop or control worryin = Not at all Worrying too much about different things: 0 = Not at all Trouble relaxin = Not at all Being so restless that it is hard to sit still: 0 = Not at all Becoming easily annoyed or irritable: 0 = Not at all Feeling afraid as if something awful might happen: 0 = Not at all Total ALONSO-7 score (0-4 normal; 5-9 mild; 10-14 moderate; 15-21 severe): 0 Source: Developed by Drs. Danish Hernandez, Nando Valentine and colleagues, with an educational barb from [employer]. ALONSO-7 Assessment Billing ALONSO-7 Assessment Tool: ALONSO-7 Assessment 18874 Review of Systems Const Details: - Dermatological: Reports persistent facial rash involving the eyes and mouth, itchy and painful, with yellowish discharge. - Reproductive: Reports rash flares before menstrual cycle. All systems reviewed & are unremarkable except as noted in HPI and below Physical exam (Primary Care) Vital Signs: Last Vital Signs Temp 97.2 F 04/23/25 10:55 Pulse 70 04/23/25 10:55 Resp 16 04/23/25 10:55 BP 106/90 H 04/23/25 10:55 Pulse Ox 100 04/23/25 10:55 Oxygen Delivery Method Room Air 04/23/25 10:55 Care Plan Goal for BP management: <140/90 at Goal BMI result Body Mass Index 23.0 Normal BMI Tobacco/Smoking Status: Tobacco use Status Tobacco use date assessed 04/23/25 04/23/25 10:58 Patient Tobacco Use Status Never used Tobacco 04/23/25 10:58 e-Cigarette/Vaping Use Never Used 04/23/25 10:58 PHQ-9: PHQ-9 Score PHQ-9: Total score 0 04/23/25 11:07 Depression Screening Interpretation: Negative Thrive Assessment: Date of Thrive Assessment Date Thrive assessed 04/23/25 04/23/25 10:58 Currently or been in a relationship where the following occur: No concerns reported Const Other: Appearance: Alert. Oriented X3. No acute distress. Head: Normal external exam. Normocephalic. Atraumatic. Eyes: Pupils are equal, round, and reactive to light. Extraocular movements intact. Conjunctiva and sclera normal. Eyelids normal. Throat: Pharynx normal. Uvula midline. Moist mucous membranes. Neck: Normal inspection. Neck supple. Full range of motion. Cardiovascular: Normal heart rate and rhythm. Respiratory: No respiratory distress. Painless inspiration. Back: No costovertebral angle tenderness. Full range of motion noted. Skin: Skin warm and dry. Normal skin color. Normal skin turgor. Rash noted on face, particularly around the eyes, cheeks and mouth that is erythematous scaly oval-shaped rash appears like rosacea. There are no vesicles, pustules or signs of active or acute infection. No lesions/lacerations noted. Extremities: Extremities exhibit normal range of motion. Office Procedures Flu Questionnaire Does the patient have a severe egg allergy?: No Does the patient have severe life threatening allergies?: No Does the patient have a fever or illness today?: No Has the patient ever had Guillain-Beecher Syndrome?: No Has the patient ever had any past reaction to a flu shot?: No Immunizations Fluarix [id number] (PF) 45 mcg (15 mcg x 3)/0.5 mL IM syringe Performing Provider: Ifrah Rios PA-C [place] [facility] [facility] [place] [facility] Documented (not given) by: Meg Reyes CMA on 04/23/25 11:07 Reason Not Given: Patient Refused Results Reviewed Results Reviewed: - Labs: Positive blood test for Herpes Simplex Virus (HSV). 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 Consideration for adding clindamycin topical treatment was discussed to potentially improve symptoms. (2) HSV-1 (herpes simplex virus 1) infection: Code(s): B00.9 - Herpesviral infection, unspecified Category: Medical Plan: The patient was prescribed valacyclovir for a 30-day course, which did not alleviate symptoms. Continuation of valacyclovir was advised as it poses no harm and may prevent potential flare-ups. 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 Discontinuation of control was recommended by her OB to evaluate its impact on the rash. Further evaluation for autoimmune conditions such as lupus and rheumatoid arthritis was suggested. Plan Plan Patient was informed and verbally consented to the use of an ambient scribe for clinic note documentation during this visit. 1. Rosacea The patient is currently on doxycycline and metronidazole cream as prescribed by the cutlet maker pork, but reports no improvement. Consideration for adding clindamycin topical treatment was discussed to potentially improve symptoms. 2. Herpes Simplex Virus (Hsv) The patient was prescribed valacyclovir for a 30-day course, which did not alleviate symptoms. Continuation of valacyclovir was advised as it poses no harm and may prevent potential flare-ups. 3. Autoimmune Progesterone Dermatitis The patient suspects a hormonal link to the rash, with flares occurring before menstruation. Discontinuation of control was recommended by her OB to evaluate its impact on the rash. Further evaluation for autoimmune conditions such as lupus and rheumatoid arthritis was suggested. During the visit, we discussed the ongoing management of the patient's facial rash, which has been diagnosed as rosacea by the cutlet maker pork. The patient has been on doxycycline and metronidazole cream, but reports no improvement, leading to consideration of clindamycin as an alternative treatment. We also reviewed the positive HSV blood test and the use of valacyclovir, which has not improved symptoms but is advised to continue as a precautionary measure. The patient suspects a hormonal component to the rash, and her OB has recommended discontinuing control to assess its impact. Further evaluation for autoimmune conditions was suggested, and follow-up appointments were scheduled to monitor progress. Orders: Orders Rheumatoid Factor Today R21 - Rash and other nonspecific skin eruption, T78.40XA - Allergy, unspecified, initial encounter Influenza [id number] Immunization Today Z23 - Encounter for immunization SUNITA Reflex Titer and Pattern Today R21 - Rash and other nonspecific skin eruption, T78.40XA - Allergy, unspecified, initial encounter Medications: New ivermectin 1% 1 appl topical DAILY 45 grams 0RF Patient Instructions: - Continue taking valacyclovir daily as prescribed. - Discontinue control as advised by your OB to evaluate its impact on the rash. - Apply clindamycin topical treatment as directed if prescribed. - Schedule follow-up appointments as discussed to monitor progress.
== END 2025-04-23 11:28 | disposition home or self-care (01) ==
LOC: HO.HMCSH 10:54
PROVIDERS: PCP Physician Assistant Medical; Visit Provider Physician Assistant Medical
DX: L71.9 Rosacea, unspecified (principal); B00.9 Herpesviral infection, unspecified; L98.8 Other specified disorders of the skin and subcutaneous tissue; Z23 Encounter for immunization

== ENCOUNTER → 2025-04-23 10:54 | Outpatient (BNVA) | payer BC, SELFPAY | PROVIDERS: PCP Physician Assistant Medical; Visit Provider Physician Assistant Medical | DX: L71.9 Rosacea, unspecified (principal); B00.9 Herpesviral infection, unspecified; L30.8 Other specified dermatitis; Z28.21 Immunization not carried out because of patient refusal; Z13.31 Encounter for screening for depression; Z13.39 Encounter for screening examination for other mental health and behavioral disorders | CPT/HCPCS: 90471; 96127 ==

== ENCOUNTER 2025-05-26 09:22 | Outpatient (AMB) | payer BC, SELFPAY ==
[2025-05-26 09:34] VITALS: BP 113/59; PULSE 77; RESP 14; TEMP 36.8; O2SAT 99; BMI 23.1
--- NOTE | 2025-05-26 09:34 | A.OFFPC_ITS ---
Vital Signs 05/26/25 09:34 Height 5 ft 6 in Weight 143 lb BMI 23.1 BP 113/59 L Blood Pressure Location Rt brachial Position Sitting Respiration 14 Pulse 77 Pulse Source Pulse Oximeter Temp 98.3 F Temp Source Temporal Artery Scan Pulse Oximetry (%) 99 Oxygen Delivery Method Room Air Intake Visit Reasons: 1 month f/u Director Of Graduate Admissions Required: No Accompanied by: Self / Same As Patient Allergies Penicillins Allergy (Intermediate, Verified 05/26/25 10:17) Hives Medication List - Last Reconciled 05/26/25 by Ifrah Rios PA-C cetirizine (All Day Allergy (cetirizine)) 10 mg PO DAILY PRN doxycycline monohydrate 100 mg PO DAILY PRN epinephrine 0.3 mg (0.3 mL) IM Q10M PRN fluconazole mg PO hydroxyzine pamoate 25 mg PO BEDTIME PRN muskrltj-gzddaxrduu-kfge-HC 3.5-400-10,000 mg-unit/g-1% (Esa-Polycin HC) 1 appl ophthalmic (eye) TID valacyclovir (Valtrex) 1,000 mg PO DAILY Tobacco use date assessed: 05/26/25 Dental Screening Dental Screen Date: 04/23/25 HPI 1 month f/u HPI Details The patient is a 44-year-old female presenting for follow-up for a severe facial rash. Her facial rosacea worsened significantly, with leaking fluid from the face, prompting a return visit to her hse coordinator where a swab confirmed a yeast infection. Initial treatment with a topical antifungal cream exacerbated the condition, causing it to become yellow and crusty. She was then prescribed two doses of oral fluconazole, which has resulted in significant improvement and resolution of the exudate, though she reports some residual mild itchiness. She continues to take doxycycline for at least another month and uses a probiotic. The patient also reports recurrent rashes on the skin around her eyes, which respond to an ointment prescribed by her manufacturing support engineer. Separately, she has been experiencing skin issues that she describes as similar to perioral dermatitis. Workup for lupus by her site interpreter was negative. There is a history of cyclical skin issues, including random hives, that occur at the same time in her menstrual cycle. Her OB-ENGLISH LECTURER advised her to discontinue control to allow for hormonal evaluation. She is scheduled for blood work on the third day of her next period to check FSH and estradiol levels for perimenopausal evaluation and will have a progesterone test in June. Social History - Employment: The patient continued to w ork despite her recent facial rash, though she took some days off. - Relationships: The patient reports fee ling self-conscious and avoided seeing her boyfriend during the peak of her facial rash. 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 Rosacea Facial rash Allergies Lymphadenopathy Xerostomia Cheilitis Nausea Flatus Abdominal cramps Acute bacterial pharyngitis Sore throat Surgical History History of removal of cyst (~2021) History of removal of cyst History of wisdom tooth extraction Family History Mother Endometriosis Diverticulitis Social History Housing: House Alcohol intake: current Alcohol intake frequency: holidays/special occasions only Patient Tobacco Use Status: Never used Tobacco e-Cigarette/Vaping Use: Never Used Second Hand Smoke Exposure: No service: No Current occupational status: employed 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 1. Little interest or pleasure in doing things: not at all 2. Feeling down, depressed, or hopeless: not at all 3. Trouble falling or staying asleep, or sleeping too much: not at all 4. Feeling tired or having little energy: not at all 5. Poor appetite or overeating: not at all 6. Feeling bad about yourself - or that you are a failure or have let yourself or your family down: not at all 7. Trouble concentrating on things, such as reading the newspaper or watching television: not at all 8. Moving or speaking so slowly that other people could have noticed. Or the opposite - being so fidgety or restless that you have been moving around a lot more than usual: not at all 9. Thoughts that you would be better off or of hurting yourself in some way: not at all Total score: 0 Depression Screening Interpretation: Negative Depression Screening Done: Yes 45734 - PHQ-9 Billing: Yes Source: Developed by Drs. Danish Hernandez, Edilia Mcdonald, Nando Payne and colleagues, with an educational barb from [employer]. Thrive Questionnaire Date Thrive assessed: 04/23/25 I am a: Patient What is your living situation today?: I have a steady place to live Within the past 12 months, did the food you bought not last and you didn't have the money to get more?: Never true Within the past 12 months, did you worry whether your food would run out before you got money to buy more?: Never true Do you have trouble paying for medicines?: No Do you have trouble getting transportation to medical appointments?: No Do you have trouble paying your heating and electricity bill?: No Do you have trouble taking care of your child, family member or friend?: No Do you have trouble with day-to-day activities such as bathing, preparing meals, shopping, managing finances, etc.?: No Are you currently unemployed and looking for a job?: No Are you interested in more education?: No Please select the resources that you would like help with: None Currently or been in a relationship where the following occur: No concerns reported THRIVE Score: 0 AUDIT C Alcohol Use Questionnaire (AUDIT-C) 1. How often do you have a drink containing alcohol?: Monthly or less 2. How many drinks containing alcohol do you have on a typical day when you are drinking?: 1 or 2 3. How often do you have six or more drinks on one occasion?: Never Total Score: 1 Score Reviewed/Action Taken: No ALONSO-7 AMB Questionnaire ALONSO-7 Date ALONSO - 7 assessed: 04/23/25 Feeling nervous, anxious, or on edge: 0 = Not at all Not being able to stop or control worryin = Not at all Worrying too much about different things: 0 = Not at all Trouble relaxin = Not at all Being so restless that it is hard to sit still: 0 = Not at all Becoming easily annoyed or irritable: 0 = Not at all Feeling afraid as if something awful might happen: 0 = Not at all Total ALONSO-7 score (0-4 normal; 5-9 mild; 10-14 moderate; 15-21 severe): 0 Source: Developed by Drs. Danish Hernandez, Edilia Mcdonald, Nando Payne and colleagues, with an educational barb from [employer]. ALONSO-7 Assessment Billing ALONSO-7 Assessment Tool: ALONSO-7 Assessment 84059 Review of Systems Const Details: - Skin: Reports improving facial rash, but with persistent mild pruritus, erythema, and significant dryness. History of recurrent rash around the eyes. History of cyclical hives. - Eyes: Denies issues with eyes themselves, but reports rash on surrounding skin. All systems reviewed & are unremarkable except as noted in HPI and below Physical exam (Primary Care) Vital Signs: Last Vital Signs Temp 98.3 F 05/26/25 09:34 Pulse 77 05/26/25 09:34 Resp 14 05/26/25 09:34 BP 113/59 L 05/26/25 09:34 Pulse Ox 99 05/26/25 09:34 Oxygen Delivery Method Room Air 05/26/25 09:34 Care Plan Goal for BP management: <140/90 at Goal BMI result Body Mass Index 23.1 Normal BMI Tobacco/Smoking Status: Tobacco use Status Tobacco use date assessed 05/26/25 05/26/25 09:36 Patient Tobacco Use Status Never used Tobacco 05/26/25 09:36 e-Cigarette/Vaping Use Never Used 05/26/25 09:36 PHQ-9: PHQ-9 Score PHQ-9: Total score 0 05/26/25 09:36 Depression Screening Interpretation: Negative Thrive Assessment: Date of Thrive Assessment Date Thrive assessed 04/23/25 05/26/25 09:36 Currently or been in a relationship where the following occur: No concerns reported Const Other: Appearance: Alert. Oriented X3. No acute distress. Head: Normal external exam. Normocephalic. Atraumatic. Eyes: Pupils are equal, round, and reactive to light. Extraocular movements intact. Conjunctiva and sclera normal. Eyelids normal. Throat: Pharynx normal. Uvula midline. Moist mucous membranes. Neck: Normal inspection. Neck supple. Full range of motion. Cardiovascular: Normal heart rate and rhythm. Respiratory: No respiratory distress. Painless inspiration. Back: Full range of motion noted. Skin: Skin warm and dry. Normal skin color. Patient reports a history of rosacea with recent facial rash and dryness, currently improving with treatment. No additional rashes, lesions or signs of infection noted. Extremities: Extremities exhibit normal range of motion. Office Procedures Flu Questionnaire Does the patient have a severe egg allergy?: No Does the patient have severe life threatening allergies?: No Does the patient have a fever or illness today?: No Has the patient ever had Guillain-[place] Syndrome?: No Has the patient ever had any past reaction to a flu shot?: No Immunizations Fluarix [id number] (PF) 45 mcg (15 mcg x 3)/0.5 mL IM syringe Performing Provider: Ifrah Rios PA-C [facility] Documented (not given) by: JG Antunez on 05/26/25 09:49 Reason Not Given: Received Previously Results Reviewed Results Reviewed: - Labs: A recent swab of a facial lesion was positive for yeast. A recent workup for lupus was negative. Coding Level of Care Code Est Pt Level 4 (91101) Complex EM visit Add On G2211 Diagnoses Rosacea L71.9 Blepharitis H01.009 Urticaria L50.9 Healthcare maintenance Z00.00 Additional Codes ALONSO-7 Assessment Billing - ALONSO-7 Assessment Tool: ALONSO-7 Assessment 07288 ([id number]) PHQ-9 - 92733 - PHQ-9 Billing: Yes ([id number]) Assessment & Plan Assessment & Plan (1) Rosacea: Code(s): L71.9 - Rosacea, unspecified Category: Medical Plan: The patient's condition has improved significantly with oral fluconazole after a topical antifungal was ineffective. She will follow up by phone with the prescribing provider to determine if additional doses of fluconazole are needed for residual pruritus. Rhofade was mentioned as a potential future treatment option. For the persistent severe dryness, it was suggested she ask her other provider about trying moisturizers like Eucerin or CeraVe. Continue doxycycline and probiotics as prescribed. (2) Blepharitis: Code(s): H01.009 - Unspecified blepharitis unspecified eye, unspecified eyelid Category: Medical Plan: The patient reports recurrent rashes around her eyes which may be related to her rosacea. A refill for her eye ointment containing dexamethasone will be sent to the pharmacy. (3) Urticaria: Code(s): L50.9 - Urticaria, unspecified Category: Medical Plan: The patient reports cyclical skin issues, including hives, which appear to be related to her menstrual cycle. She will follow her ENGLISH LECTURER's plan, which includes blood work (FSH, estradiol) on day 3 of her next cycle and a progesterone test in June, to evaluate her hormonal status. She was advised to ask her ENGLISH LECTURER provider about adding a testosterone level to the planned blood work. (4) Healthcare maintenance: Code(s): Z00.00 - Encounter for general adult medical examination without abnormal findings Category: Medical Plan: The patient will not receive a refill for Valtrex at this time to determine if it is necessary now that she is off of it for HSV. The patient will sign a medical release form to obtain records from her license and permit specialist, Dr. Ji Gusman. A follow-up appointment is scheduled in two months, and the patient was instructed to return sooner if her condition worsens. Plan Plan Patient was informed and verbally consented to the use of an ambient scribe for clinic note documentation during this visit. 1. Rosacea With Secondary Fungal Infection The patient's condition has improved significantly with oral fluconazole after a topical antifungal was ineffective. She will follow up by phone with the prescribing provider to determine if additional doses of fluconazole are needed for residual pruritus. Rhofade was mentioned as a potential future treatment option. For the persistent severe dryness, it was suggested she ask her other provider about trying moisturizers like Eucerin or CeraVe. Continue doxycycline and probiotics as prescribed. 2. Recurrent Eyelid Dermatitis / Blepharitis The patient reports recurrent rashes around her eyes which may be related to her rosacea. A refill for her eye ointment containing dexamethasone will be sent to the pharmacy. 3. Cyclical Urticaria/Perimenopausal Evaluation The patient reports cyclical skin issues, including hives, which appear to be related to her menstrual cycle. She will follow her ENGLISH LECTURER's plan, which includes blood work (FSH, estradiol) on day 3 of her next cycle and a progesterone test in June, to evaluate her hormonal status. She was advised to ask her ENGLISH LECTURER provider about adding a testosterone level to the planned blood work. 4. Health Maintenance The patient will not receive a refill for Valtrex at this time to determine if it is necessary now that she is off of it. The patient will sign a medical release form to obtain records from her license and permit specialist, Dr. Ji Gusman. A follow-up appointment is scheduled in two months, and the patient was instructed to return sooner if her condition worsens. I informed the patient that her facial skin appears much improved, with resolving redness and no signs of exudate, though I noted it is very dry. We discussed her treatment history, including the improvement with oral fluconazole, and her plan to contact the prescribing provider about the need for more medication for residual itchiness. I suggested she ask about using Eucerin or CeraVe for the dryness. We reviewed the ENGLISH LECTURER plan for hormonal evaluation and I recommended she ask for a testosterone level to be included. I filled her eye ointment and had her sign a release for her allergy/immunology records. We agreed to hold off on refilling Valtrex to assess necessity. We scheduled a follow-up in two months, with instructions to return sooner if her condition worsens. Orders: Orders Influenza [id number] Immunization Today Z23 - Encounter for immunization Medications: New neomycin-polymyxin B-dexameth 3.5 mg/g-10,000 unit/g-0.1 % (Maxitrol) 1 appl ophthalmic (eye) BEDTIME 3.5 grams 3RF Patient Instructions: - Your facial rash is looking much better. Continue your current medications. - Call your other doctor tomorrow to give them an update on your skin and see if you need more of the oral antifungal medication. - For your very dry skin, ask your other doctor if it is okay to try Eucerin or CeraVe moisturizer. - When you have your hormone blood tests done, ask your ENGLISH LECTURER provider if they can also check your testosterone level. - Please sign the medical release form at the front desk assistant so we can get your records from your mission assessment specialist. - A refill for your eye ointment was sent to your pharmacy. - We will wait to refill your Valtrex prescription to see if you still need it. - Please schedule a follow-up appointment in about two months. Call us sooner if your skin gets worse.
== END 2025-05-26 10:16 | disposition home or self-care (01) ==
LOC: HO.HMCSH 09:22
PROVIDERS: PCP Physician Assistant Medical; Visit Provider Physician Assistant Medical
DX: L71.9 Rosacea, unspecified (principal); H01.009 Unspecified blepharitis unspecified eye, unspecified eyelid; L50.9 Urticaria, unspecified; Z00.00 Encounter for general adult medical examination without abnormal findings; Z23 Encounter for immunization

== ENCOUNTER → 2025-05-26 09:22 | Outpatient (BNVA) | payer BC, SELFPAY | PROVIDERS: PCP Physician Assistant Medical; Visit Provider Physician Assistant Medical | DX: Z00.00 Encounter for general adult medical examination without abnormal findings (principal); L71.9 Rosacea, unspecified; H01.009 Unspecified blepharitis unspecified eye, unspecified eyelid; Z28.89 Immunization not carried out for other reason | CPT/HCPCS: 90471; 96127 ==

== ENCOUNTER 2025-07-07 09:24 | Outpatient (AMB) | payer BC, SELFPAY ==
[2025-07-07 09:27] VITALS: BP 111/56; PULSE 80; RESP 14; TEMP 36.4; O2SAT 99; BMI 23.6
--- NOTE | 2025-07-07 09:27 | A.OFFPC_ITS ---
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 She has been experiencing recurrent facial flare-ups, which led to a dermatology consultation. 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 She was also found to be allergic to ingredients in her shampoo and conditioner. Despite eliminating these allergens, the patient experienced another significant flare-up, prompting her imaging technologist to prescribe Rinvoq. She is no longer using Valtrex. She was prescribed an EpiPen for emergency use and takes cetirizine daily. The patient has a mammogram and ophthalmology exam that were completed. She is scheduled to see a new automatic edger in September and has her annual physical scheduled for October. 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 Rosacea Facial rash Allergies Lymphadenopathy Xerostomia Cheilitis Nausea Flatus Abdominal cramps Acute bacterial pharyngitis Sore throat Surgical History History of removal of cyst (~2021) History of removal of cyst History of wisdom tooth extraction Family History Mother Endometriosis Diverticulitis Social History Housing: House Alcohol intake: current Alcohol intake frequency: holidays/special occasions only Patient Tobacco Use Status: Never used Tobacco e-Cigarette/Vaping Use: Never Used Second Hand Smoke Exposure: No service: No Current occupational status: employed 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 1. Little interest or pleasure in doing things: not at all 2. Feeling down, depressed, or hopeless: not at all 3. Trouble falling or staying asleep, or sleeping too much: not at all 4. Feeling tired or having little energy: not at all 5. Poor appetite or overeating: not at all 6. Feeling bad about yourself - or that you are a failure or have let yourself or your family down: not at all 7. Trouble concentrating on things, such as reading the newspaper or watching television: not at all 8. Moving or speaking so slowly that other people could have noticed. Or the opposite - being so fidgety or restless that you have been moving around a lot more than usual: not at all 9. Thoughts that you would be better off or of hurting yourself in some way: not at all Total score: 0 Depression Screening Interpretation: Negative Depression Screening Done: Yes 69999 - PHQ-9 Billing: Yes Source: Developed by Drs. Danish Hernandez, Edilia Mcdonald, Nando Payne and colleagues, with an educational barb from [employer] Thrive Questionnaire Date Thrive assessed: 04/23/25 I am a: Patient What is your living situation today?: I have a steady place to live Within the past 12 months, did the food you bought not last and you didn't have the money to get more?: Never true Within the past 12 months, did you worry whether your food would run out before you got money to buy more?: Never true Do you have trouble paying for medicines?: No Do you have trouble getting transportation to medical appointments?: No Do you have trouble paying your heating and electricity bill?: No Do you have trouble taking care of your child, family member or friend?: No Do you have trouble with day-to-day activities such as bathing, preparing meals, shopping, managing finances, etc.?: No Are you currently unemployed and looking for a job?: No Are you interested in more education?: No Please select the resources that you would like help with: None Currently or been in a relationship where the following occur: No concerns reported THRIVE Score: 0 AUDIT C Alcohol Use Questionnaire (AUDIT-C) 1. How often do you have a drink containing alcohol?: Monthly or less 2. How many drinks containing alcohol do you have on a typical day when you are drinking?: 1 or 2 3. How often do you have six or more drinks on one occasion?: Never Total Score: 1 Score Reviewed/Action Taken: No ALONSO-7 AMB Questionnaire ALONSO-7 Date ALONSO - 7 assessed: 04/23/25 Feeling nervous, anxious, or on edge: 0 = Not at all Not being able to stop or control worryin = Not at all Worrying too much about different things: 0 = Not at all Trouble relaxin = Not at all Being so restless that it is hard to sit still: 0 = Not at all Becoming easily annoyed or irritable: 0 = Not at all Feeling afraid as if something awful might happen: 0 = Not at all Total ALONSO-7 score (0-4 normal; 5-9 mild; 10-14 moderate; 15-21 severe): 0 Source: Developed by Drs. Danish Hernandez, Edilia Mcdonald, Nando Payne and colleagues, with an educational barb from [employer] ALONSO-7 Assessment Billing ALONSO-7 Assessment Tool: ALONSO-7 Assessment 53877 Review of Systems Narrative Review of Systems - Skin: Reports improving facial rash. Denies pruritus. - All other systems were reviewed and are negative. Const All systems reviewed & are unremarkable except as noted in HPI and below Physical exam (Primary Care) Vital Signs: Last Vital Signs Temp 97.6 F 07/07/25 09:27 Pulse 80 07/07/25 09:27 Resp 14 07/07/25 09:27 BP 111/56 L 07/07/25 09:27 Pulse Ox 99 07/07/25 09:27 Oxygen Delivery Method Room Air 07/07/25 09:27 Care Plan Goal for BP management: <140/90 at Goal BMI result Body Mass Index 23.6 Normal BMI Tobacco/Smoking Status: Tobacco use Status Tobacco use date assessed 05/26/25 07/07/25 09:28 Patient Tobacco Use Status Never used Tobacco 07/07/25 09:28 e-Cigarette/Vaping Use Never Used 07/07/25 09:28 PHQ-9: PHQ-9 Score PHQ-9: Total score 0 07/07/25 09:39 Depression Screening Interpretation: Negative Thrive Assessment: Date of Thrive Assessment Date Thrive assessed 04/23/25 07/07/25 09:28 Currently or been in a relationship where the following occur: No concerns repor lexus Narrative Physical Exam Appearance: Alert. Oriented X3. No acute distress. Head: Normal external exam. Normocephalic. Atraumatic. Eyes: Pupils are equal, round, and reactive to light. Extraocular movements intact. Conjunctiva and sclera normal. Eyelids normal. Throat: Pharynx normal. Uvula midline. Moist mucous membranes. Neck: Normal inspection. Neck supple. Full range of motion. Cardiovascular: Normal heart rate and rhythm. Respiratory: No respiratory distress. Painless inspiration. Back: Full range of motion noted. Skin: Skin warm and dry. Normal skin color. Normal skin turgor. Facial Skin appears smooth and less blotchy, with pinkish tint and training and development coordinator spots starting to appear. No additional rashes/lesions/lacerations noted. Extremities: Extremities exhibit normal range of motion. Neuro: Oriented X 3. No motor deficit. No sensory deficit. Reflexes normal. Results Reviewed Results Reviewed: - Tests: - Patch testing: Positive for neomycin sulfate allergy and allergies to ingredients in her shampoo and conditioner. Coding Level of Care Code Est Pt Level 4 (11720) Complex visit Add On G2211 Diagnoses Rosacea L71.9 Healthcare maintenance Z00.00 Additional Codes ALONSO-7 Assessment Billing - ALONSO-7 Assessment Tool: ALONSO-7 Assessment 44140 ([id number]) PHQ-9 - 42318 - PHQ-9 Billing: Yes ([id number]) Assessment & Plan Assessment & Plan (1) Rosacea: Code(s): L71.9 - Rosacea, unspecified Category: Medical Plan: The patient's facial rash has improved with the current regimen, which includes Rinvoq prescribed by her imaging technologist. She continues to take cetirizine daily and has an EpiPen available. She will continue to follow up with her imaging technologist for management. (2) Healthcare maintenance: Code(s): Z00.00 - Encounter for general adult medical examination without abnormal findings Category: Medical Plan: The patient is scheduled for her annual physical examination in October. Lab work has been ordered to be completed fasting a few days prior to the appointment. The lab order includes a CBC, CMP, SUNITA, rheumatoid factor, inflammatory markers, magnesium, cholesterol panel, liver enzymes, thyroid function tests, vitamin B12, vitamin D, folate, and urinalysis to screen for autoimmune disorders, diabetes, and other conditions. She will be contacted if any immediate abnormalities are found. She also has a pending appointment with a new automatic edger in September. Plan Plan Patient was informed and verbally consented to the use of an ambient scribe for clinic note documentation during this visit. 1. Atopic Dermatitis The patient's facial rash has improved with the current regimen, which includes Rinvoq prescribed by her imaging technologist. She continues to take cetirizine daily and has an EpiPen available. She will continue to follow up with her imaging technologist for management. 2. Follow-Up For Annual Physical Examination The patient is scheduled for her annual physical examination in October. Lab work has been ordered to be completed fasting a few days prior to the appointment. The lab order includes a CBC, CMP, SUNITA, rheumatoid factor, inflammatory markers, magnesium, cholesterol panel, liver enzymes, thyroid function tests, vitamin B12, vitamin D, folate, and urinalysis to screen for autoimmune disorders, diabetes, and other conditions. She will be contacted if any immediate abnormalities are found. She also has a pending appointment with a new automatic edger in September. Discussion Notes I reviewed the patient's progress with her facial rash, noting that it appears to be improving significantly and that her skin looks much better. We discussed the recent finding of a neomycin sulfate allergy from patch testing, which likely contributed to her persistent symptoms. I explained the lab work I am ordering for her upcoming physical, which includes a comprehensive panel to screen for autoimmune diseases, diabetes, and to check blood counts, kidney and liver function, electrolytes, cholesterol, and vitamin levels. I advised her to have the labs drawn while fasting a few days before her October appointment and assured her that I would call with any urgent abnormal results. Orders: Orders Complete Blood Count Auto Diff Today Z00.00 - Encounter for general adult medical examination without abnormal findings Comprehensive [place]. Panel Fast Today Z. - Encounter for general adult medical examination without abnormal findings Lipid Panel Today Z. - Encounter for general adult medical examination without abnormal findings Vitamin B12 and Folate Today . - Encounter for general adult medical examination without abnormal findings C Reactive Protein Today Z. - Encounter for general adult medical examination without abnormal findings Erythrocyte Sedimentation Rate Today Z. - Encounter for general adult medical examination without abnormal findings Magnesium Today Z. - Encounter for general adult medical examination without abnormal findings Hemoglobin A1c Today Z. - Encounter for general adult medical examination without abnormal findings UA CC w/rflx Micro + Cult Today Z. - Encounter for general adult medical examination without abnormal findings TSH reflex Free T4 Today Z. - Encounter for general adult medical examination without abnormal findings Vitamin D 25-OH Total Today Z. - Encounter for general adult medical examination without abnormal findings Patient Instructions: Patient Instructions - Continue your current medications for the facial rash as prescribed by your imaging technologist, including Rinvoq and daily cetirizine. - Keep your EpiPen with you in case of a severe allergic reaction. - Avoid using products containing neomycin sulfate and other identified allergens. - Please go for your blood tests a few days before your physical in October. You will need to fast (nothing to eat or drink except water) before the blood draw. - We will call you if any of your lab results are urgently abnormal. Otherwise, we will discuss them at your physical. - Keep your appointment with the new automatic edger in September. - Let us know if your rash comes back or gets worse.
== END 2025-07-07 09:48 | disposition home or self-care (01) ==
LOC: HO.HMCSH 09:24
PROVIDERS: PCP Physician Assistant Medical; Visit Provider Physician Assistant Medical
DX: L71.9 Rosacea, unspecified (principal); Z00.00 Encounter for general adult medical examination without abnormal findings

== ENCOUNTER → 2025-07-07 09:24 | Outpatient (BNVA) | payer BC, SELFPAY | PROVIDERS: PCP Physician Assistant Medical; Visit Provider Physician Assistant Medical | DX: Z00.00 Encounter for general adult medical examination without abnormal findings (principal); L71.9 Rosacea, unspecified | CPT/HCPCS: 96127 ==